=== PATIENT | male | born 1980 | race African-American/Black ===

== ENCOUNTER 2024-05-20 11:10 | Inpatient (IN) | payer MEDICAID, OTHER ==
[~2024-05-20] VITALS: Ht 182.9 cm; Wt 73.2 kg
--- NOTE | 2024-05-20 11:34 | DVH ---
CHEST RADIOGRAPH Indication: sob Technique: Single frontal view of the chest was obtained COMPARISON: None FINDINGS: Lines and Tubes: None Lungs: Left basilar subsegmental atelectasis. Pleura: No effusion. No pneumothorax. Cardiomediastinal contours: Unremarkable Bones: Unremarkable IMPRESSION: Left basilar subsegmental atelectasis.
[2024-05-20] MEDS: ALBUTEROL SULF 2.5 MG/0.5ML(0.5%) NEB SOLN NEB ONE (11:38)
[2024-05-20] MEDS: IPRATROPIUM BROM 0.5 MG/2.5ML INH SOL NEB ONE (11:38)
--- NOTE | 2024-05-20 11:49 | ED.PDOC ---
SOB-HPI HPI Comments 44 y.o male presents to the ED via EMS with a one day history of SOB associated with a productive cough and green phlegm sputum. Patient reports chest wall pain when exhaling and states he "cannot catch his breath". EMS reports normal SPO2 levels with hypotension at 80 systolic on scene, BG in the 350's, and a HR of 130-140 ST. EMS gave IV fluids with recent repeated blood pressure upon ED arrival reading 101 systolic but HR remains elevated. Patient denies any fever, chills, back pain, recent illness exposure, abdominal pain, nausea, vomiting. Patient also denies any medical history and is not on any medication at this time. No allergies reported. Patient is a tobacco smoker. 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 Modifying Factors: Nothing Associated Signs and Symptoms: Cough Quality: Sharp Radiation: No Radiation Location: Substernal If cough with SOB: Productive, Green Past Medical History PAST MEDICAL HISTORY: Denies Surgical History: Hernia Repair Family History Family History: Reviewed,noncontributory to illness Social History Smoker: Cigarettes Alcohol: Denies ETOH Use Drugs: Denies Drug Use Lives In: Home Constitutional: denies: chills, diaphoresis, fatigue, fever, malaise, sweats, weakness, others EENTM: denies: blurred vision, double vision, ear bleeding, ear discharge, ear drainage, ear pain, ear ringing, eye pain, eye redness, hearing loss, mouth pain, mouth swelling, nasal discharge, nose bleeding, nose congestion, nose pain, photophobia, tearing, throat pain, throat swelling, voice changes, others Respiratory: reports: cough, SOB at rest, shortness of breath, SOB with excertion; denies: hemoptysis, orthopnea, stridor, wheezing, others Cardiovascular: reports: chest pain; denies: dizzy spells, diaphoresis, Dyspnea on exertion, edema, irregular heart beat, left arm pain, lightheadedness, palpitations, PND, syncope, others Gastrointestinal: denies: abdomen distended, abdominal pain, blood streaked bowels, constipated, diarrhea, dysphagia, difficulty swallowing, hematemesis, melena, nausea, poor appetite, poor fluid intake, rectal bleeding, rectal pain, vomiting, others Genitourinary: denies: burning, dysuria, flank pain, frequency, hematuria, incontinence, penile discharge, penile sore, pain, testicle pain, testicle swelling, urgency, others Neurological: denies: dizziness, fainting, headache, left sided numbness, left sided weakness, numbness, paresthesia, pre-existing deficit, right sided numbness, right sided weakness, seizure, speech problems, tingling, tremors, weakness, others Musculoskeletal: denies: back pain, gout, joint pain, joint swelling, muscle pain, muscle stiffness, neck pain, others Integumetry: denies: bruises, change in color, change in hair/nails, dryness, laceration, lesions, lumps, rash, wounds, others Allergic/Immunocompromised: denies: Difficulty Healing, Frequent Infections, Hives, Itching, others Hematologic/Lymphatic: denies: anemia, blood clots, easy bleeding, easy bruising, swollen glands, others Endocrine: denies: excessive hunger, excessive sweating, excessive thirst, excessive urination, flushing, intolerance to cold, intolerance to heat, unexplained weight gain, unexplained weight loss, others Psychiatric: denies: anxiety, bipolar disorder, depression, hopeless, panic disorder, schizophrenia, sleepless, suicidal, others All Other Systems: Reviewed and Negative Physical Exam General Appearance: Mild Distress HEENT: Other (Bolused symmetric, no facial asymmetry) Neck: Full Range of Motion, Normal Inspection Respiratory: Decreased Breath Sounds, No Accessory Muscle Use, No Respiratory Distress Cardiovascular: No Edema, No JVD, Tachycardia Breast Exam: Deferred Gastrointestinal: Non Tender, Soft Genitalia: Deferred Pelvic: Deferred Rectal: Deferred Extremities: Normal inspection, Normal range of motion, Non-tender, No pedal edema Neurologic: Alert (Oriented x4), Other (Moves all extremities. No gross focal deficit.) Cerebellar Function: NOT DONE Reflexes: NOT DONE Skin: Dry, Normal Color, Warm Lymphatic: NOT DONE EKG EKG : Comments Sinus tach, rate 119, normal ID and QRS intervals, QTC 518, normal axis, normal QRS, nonspecific T changes. Was a procedure done? Was a procedure done?: No Differential Dx Differential Diagnosis: Asthma, Bronchitis, Cardiogenic Shock, CHF, COPD, Myocardial infarction, Pneumonia, Pulmonary Embolism, Respiratory Distress, URI, Other (Sepsis, electrolyte imbalance, DKA, among others) X-Ray, Labs, Meds, VS Vital Signs Date Time Temp Pulse Resp B/P (MAP) Pulse Ox O2 Delivery O2 Flow Rate FiO2 05/20/24 18:59 107 20 90/61 (71) 93 05/20/24 18:44 107 20 98 Room Air* 0 21 05/20/24 18:36 108 20 83/43 (56) 96 05/20/24 18:18 111 20 88/52 (64) 92 05/20/24 18:00 107 20 87/49 (62) 93 05/20/24 17:18 98.2 107 20 98/68 (78) 96 98.2 05/20/24 14:53 97.8 112 16 112/59 (76) 94 97.8 05/20/24 12:25 128 18 94 Room Air 05/20/24 12:25 98.7 128 18 103/52 (69) 94 98.7 05/20/24 11:38 20 93 Room Air* 0 21 05/20/24 11:20 98.2 133 18 105/72 (83) 96 98.2 05/20/24 11:13 98.2 133 18 105/72 (83) 96 05/20/24 11:13 119 Lab Test 05/20/24 17:25 05/20/24 15:16 05/20/24 14:57 05/20/24 13:15 Range/Units POC Glucose 133 H 70-106 mg/dl Lactic Acid Level 8.2 *H 10.5 *H 0.4-2.0 mmol/L Troponin I High Sensitivity 31 32 </=54 ng/L Beta-Hydroxybutyric Acid 0.124 < 0.4 mmol/L Blood Gas Specimen Type Arterial Blood Gas Sample Site Left radial Blood Gas Patient Temperature 37.0 Arterial Blood Date Drawn [id number] Arterial Blood pH 7.336 L 7.350-7.450 Arterial Blood Partial Pressure CO2 36.9 35.0-48.0 mmHg Arterial Blood Partial Pressure O2 69.8 L 83.0-108.0 mmHg Arterial Blood HCO3 19.3 L 21.0-28.0 mmol/L Arterial Blood Oxygen Saturation 91.9 L 94.0-98.0 % Arterial Blood Base Excess -5.9 L -2.0-3.0 mmol/L Arterial Blood Oxyhemoglobin 89.8 L 94.0-98.0 % Arterial Blood Carboxyhemoglobin 2.0 H 0.5-1.5 % Arterial Blood Methemoglobin 0.3 0.0-1.5 % Edilberto Test Yes Blood Gas Total Hemoglobin 14.00 13.5-17.5 g/dL Blood Gas Modality Room air FiO2 % 21.0 Test 05/20/24 12:45 05/20/24 11:42 Range/Units Influenza Type A Antigen Negative Negative Influenza Type B Antigen Negative Negative SARS-CoV-2 Antigen (Rapid) Negative NEGATIVE White Blood Count 4.9 4.4-10.8 10^3/uL Red Blood Count 3.72 L 4.5-5.90 10^6/uL Hemoglobin 13.7 13.5-17.5 g/dL Hematocrit 41.6 41.0-53.0 % Mean Corpuscular Volume 111.7 H 80.0-100.0 fL Mean Corpuscular Hemoglobin 36.7 H 28.0-32.0 pg Mean Corpuscular Hemoglobin Concent 32.9 32.0-36.0 g/dL Red Cell Distribution Width 15.8 H 11.8-14.3 % Platelet Count 180 140-450 10^3/uL Mean Platelet Volume 8.9 6.9-10.8 fL Neutrophils (%) (Auto) 37.0-80.0 % Lymphocytes (%) (Auto) 10.0-50.0 % Monocytes (%) (Auto) 0.0-12.0 % Basophils (%) (Auto) 0.0-2.0 % Neutrophils # (Auto) 1.6-8.6 10 ^3/uL Lymphocytes # (Auto) 0.4-5.4 10 ^3/uL Monocytes # (Auto) 0-1.3 10 ^3/uL Differential Total Cells Counted 100.0 100 Neutrophils % (Manual) 80 37.0-80.0 Band Neutrophils % (Manual) 16 Lymphocytes % (Manual) 2 L 10.0-50.0 Monocytes % (Manual) 2 0-12 Eosinophils % (Manual) 0 0-7 Basophils % (Manual) 0 0.0-2.0 Metamyelocytes % (manual) 0 Myelocytes % (Manual) 0 Promyelocytes % (Manual) 0 Blast Cells % (Manual) 0 Reactive Lymphocytes 0 Platelet Estimate Adequate Anisocytosis (manual) Slight Macrocytosis Marked Sodium Level 129 L 136-145 mmol/L Potassium Level 2.7 L 3.5-5.1 mmol/L Chloride Level 90 L 98-107 mmol/L Carbon Dioxide Level 19 L 20-31 mmol/L Anion Gap 20 H 5-15 Blood Urea Nitrogen 19 9-23 mg/dL Creatinine 2.26 H 0.700-1.30 mg/dL Glomerular Filtration Rate Calc 36 >90 mL/min BUN/Creatinine Ratio 8.4 L 10.0-20.0 Serum Glucose 305 H 74-106 mg/dL Calcium Level 8.7 8.7-10.4 mg/dL Troponin I High Sensitivity 29 </=54 ng/L B-Type Natriuretic Peptide 29.98 0-100 pg/mL Current Medications Medications (Trade) Dose Ordered Sig/Cristela Route Start Time Stop Time Status Last Admin Albuterol (Ventolin Medneb) 5 mg ONCE ONCE NEB 05/20/24 11:30 05/20/24 11:31 DC 05/20/24 11:38 Ipratropium [place] (Atrovent Medneb) 0.5 mg ONCE ONCE NEB 05/20/24 11:30 05/20/24 11:31 DC 05/20/24 11:38 Dexamethasone Sodium Phosphate (Decadron Injection) 10 mg ONCE ONCE IV 05/20/24 11:30 05/20/24 11:31 DC 05/20/24 12:42 Acetaminophen/ Hydrocodone Bitart ([place] 10/325MG Tab) 1 tab ONCE ONCE PO 05/20/24 11:30 05/20/24 11:31 DC 05/20/24 12:38 Sodium Chloride 1,000 ml @ 1,000 mls/hr Q1H ONCE IV 05/20/24 12:15 05/20/24 13:14 DC 05/20/24 12:54 Sodium Chloride 1,000 ml @ 1,000 mls/hr Q1H ONCE IV 05/20/24 14:45 05/20/24 15:44 DC 05/20/24 15:19 Piperacillin Sod/ Tazobactam Sod 100 ml @ 100 mls/hr ONCE ONCE IV 05/20/24 14:45 05/20/24 15:44 DC 05/20/24 15:18 Vancomycin HCl 250 ml @ 250 mls/hr ONCE ONCE IV 05/20/24 14:45 05/20/24 15:44 DC 05/20/24 18:23 Potassium Bicarbonate (Klor-Con/Ef) 50 meq ONCE ONCE PO 05/20/24 14:45 05/20/24 14:52 DC 05/20/24 16:33 Diagnostic Test (Pha) (Accu-Chek Comfort Curve T) 1 strip Q90MIN 05/20/24 15:00 05/20/24 17:41 DC 05/20/24 16:30 Sodium Chloride 1,000 ml @ 1,000 mls/hr Q1H ONCE IV 05/20/24 15:00 05/20/24 15:59 DC 05/20/24 16:38 [place] [id number] Ph: [phone] DIAGNOSTIC IMAGING Diagnostic Imaging Report : [id number] Signed PATIENT: EVY BURKS ACCT: [id number] UNIT: [id number] : 1980 LOC: ER ROOM / BED: / AGE / SEX: 44 / M ADM STATUS: REG ER SERVICE 111 ORDERING PHYSICIAN: JEYSON FRITZ MD PROCEDURE(s): CXRP - CHEST PORTABLE REASON: sob ORDER NUMBER(s): [id number], ACCESSION NUMBER(s): [id number] CHEST RADIOGRAPH Indication: sob Technique: Single frontal view of the chest was obtained COMPARISON: None FINDINGS: Lines and Tubes: None Lungs: Left basilar subsegmental atelectasis. Pleura: No effusion. No pneumothorax. Cardiomediastinal contours: Unremarkable Bones: Unremarkable IMPRESSION: Left basilar subsegmental atelectasis. ATED BY: MARITO WINTER MD DICTATED DATE/TIME: 05/20/24 113 SIGNED BY: MARITO WINTER MD SIGNED DATE/TIME: 05/20/24 113 CC: X-Ray, Labs, Meds, VS Comment 44-year-old male with no reported past medical history complaining of shortness a breath, productive cough and found to be hyperglycemic and hypotensive Vitals remarkable for heart rate 133 Exam remarkable for tachycardia and diminished breath sounds at both bases EKG sinus tach, nonspecific T changes Chest x-ray left basilar atelectasis CBC unremarkable, basic metabolic panel remarkable for sodium 129, potassium 2.7, chloride 90, CO2 19, creatinine 2.26, glucose 305, anion gap 20, creatinine 2.26 Lactate 10.5 BNP and troponin negative Beta hydroxybutyrate and ABG pending Patient treated with the following in the ED: 3 L 0.9 normal saline IV bolus, Zosyn 4.5 g IV, vancomycin 1 g IV, Decadron 10 mg IV, albuterol 5 mg/Atrovent 0.5 mg nebulized, potassium effervescent 50 mEq p.o., started on Levophed infusion due to persistent hypotension despite IV fluid resuscitation On re-evaluation, patient has a normal oxygen saturation, vitals are stable except for mild tachycardia. Plan is to admit the patient for IV hydration, electrolyte correction and treatment of new onset diabetes with DKA. Time of 1ST Reevaluation: 11:49 Reevaluation 1ST: Unchanged Patient Education/Counseling: Diagnosis, Treatment, Prognosis Family Education/Counseling: No Family Present Sepsis Sepsis Reasesment Focused Exam Sepsis focused exam: focus exam completed (1446. Good capillary refill, blood pressure improving.), time: (1445) Departure 1 Departure Time of Disposition: 14:45 Impression: Primary Impression: Sepsis Qualified Codes: A41.9 - Sepsis, unspecified organism Additional Impression: Electrolyte imbalance Disposition: 09 ADMITTED INPATIENT Admit to: Tele Condition: Guarded Critical Care Note Critical Care Time?: Yes (45 min-critical care time only) Critical care comment: Critical care time includes multiple bedside re-evaluations, review of lab and imaging studies, discussion with the case with the admitting provider. Patient was high risk for metabolic, respiratory and/or hemodynamic decompensation Stability Stability form required: No Heart Score Heart Score: Heart Score Response (Comments) Value History Slightly Suspicious 0 EKG Repolarization Disturb 1 Age 45-64 1 Risk Factors 1 or 2 risk factors 1 Troponin Normal limit 0 Total 3 I personally scribed for JEYSON FRITZ MD ([facility]) on 05/20/24 at 11:49. Electronically submitted by Sury Moore ([facility]). I personally scribed for JEYSON FRITZ MD ([facility]) on 05/20/24 at 12:43. Electronically submitted by Sury Moore ([facility]). JEYSON FRITZ MD May 20, 2024 11:49
[2024-05-20 12:11] LABS: Hemoglobin 13.7 g/dL (13.5-17.5); White Blood Cell 4.9 10^3/uL (4.4-10.8)
[2024-05-20 12:15] LABS: Hematocrit 41.6 % (41.0-53.0); Mean Corpuscular Hemoglobin 36.7 pg (28.0-32.0); Mean Corpuscular Hgb Conc. 32.9 g/dL (32.0-36.0); Mean Corpuscular Volume 111.7 fL (80.0-100.0); Platelet Count (auto) 180 10^3/uL (140-450); Red Blood Cells 3.72 10^6/uL (4.5-5.90); Red Cell Distribution Width 15.8 % (11.8-14.3)
[2024-05-20 12:31] LABS: Basophils % (manual) 0 (0.0-2.0); Blast Cells 0; Eosinophils % (manual) 0 (0-7); Metamyelocytes % 0; Myelocytes % 0; Promyelocytes % 0; Reactive Lymphocytes 0
[2024-05-20] MEDS: HYDROcodone-ACET 10/325MG TAB PO ONE (12:38)
[2024-05-20 12:39] LABS: Anion Gap 20 (5-15)
[2024-05-20] MEDS: DexAMETHasone SOD PHOS 10MG/1ML VIAL INJ IV ONE (12:42)
[2024-05-20 12:44] LABS: BUN/Creatinine Ratio 8.4 (10.0-20.0); Blood Urea Nitrogen 19 mg/dL (9-23)
[2024-05-20 12:45] LABS: Calcium 8.7 mg/dL (8.7-10.4); Carbon Dioxide 19 mmol/L (20-31); Chloride 90 mmol/L (98-107); Glucose 305 mg/dL (74-106); Potassium 2.7 mmol/L (3.5-5.1); Sodium 129 mmol/L (136-145)
[2024-05-20] MEDS: SODIUM CHLORIDE 0.9% 1,000 ML IV ONE ×3 (12:54→16:38)
[2024-05-20 12:58] LABS: Band Neutrophils % (manual) 16; Lymphocytes % (manual) 2 (10.0-50.0); Monocytes % (manual) 2 (0-12)
[2024-05-20 12:59] LABS: Anisocytosis Slight; Macrocytosis Marked; Platelet Estimate Adequate
[2024-05-20 14:20] LABS: Lactic Acid w/Reflex 10.5 mmol/L (0.4-2.0)
[2024-05-20 14:30] LABS: COVID19 ANTIGEN SOFIA FIA NEGATIVE (NEGATIVE); Rapid Influenza A Negative (Negative); Rapid Influenza B Negative (Negative)
[2024-05-20] MEDS ORDERED: INSULIN DRIP 100 UNIT/100ML 100 ML IV SCH (14:45)
[2024-05-20] MEDS ORDERED: DEXTROSE (50%) 50ML SYRG IV PRN ×2 (14:45→20:15)
[2024-05-20] MEDS ORDERED: INSULIN LANTUS (GLARGINE) 1 /0.01ml (100units/ml) SC ONE (14:45)
--- NOTE | 2024-05-20 14:55 | ECG ---
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
[2024-05-20] MEDS: ACCU-CHEK COMFORT CURVE STRIP VI SCH (15:00)
[2024-05-20 15:09] LABS: Base Excess -5.9 mmol/L (-2.0-3.0)
[2024-05-20] MEDS: PIPERACILLIN-TAZO 4.5GM 100 ML IV ONE (15:18)
[2024-05-20] MEDS: POTASSIUM EFFERVESENT TAB 25 MEQ PO ONE (16:33)
[2024-05-20] MEDS: VANCOMYCIN 1GM/250ML KIT 250 ML IV ONE (18:23)
[2024-05-20 18:44] VITALS: PULSE 107; RESP 20; O2SAT 98
[2024-05-20] MEDS ORDERED: DOCUSATE SOD 100 MG CAP PO PRN (19:15)
[2024-05-20] MEDS ORDERED: VANCOMYCIN PER PHARMACY 0 MG IV SCH (19:15)
[2024-05-20] MEDS ORDERED: ACETAMINOPHEN 325 MG TAB PO PRN (19:15)
[2024-05-20] MEDS ORDERED: ONDANSETRON HCL 4 MG/2 ML VIAL IV PRN (19:15)
[2024-05-20] MEDS: NOREPINEPHRINE 8 MG/250ML KIT 250 ML IV SCH (19:40)
[2024-05-20 19:45] VITALS: O2SAT 95
[2024-05-20 19:53] VITALS: PULSE 100; RESP 18; O2SAT 97
[2024-05-20 20:00] VITALS: BP 80/62; PULSE 112; RESP 24; TEMP 98.3; O2SAT 95
--- NOTE | 2024-05-20 20:09 | DVHHP2 ---
History of Present Illness Reason for Visit: Sepsis, unspecified organism History of Present Illness The patient is a 44-year-old male who denies past medical history presented to [facility] ED with complaint of shortness of breaths. Patient reports symptoms progressively get worse with productive cough with greenish phlegm sputum, generalized weakness, palpitations, hypotensive, getting worse that prompted this visit. Patient was seen and evaluated in the ED, laboratory data shows WBC 4.9, platelet 180, sodium 129, potassium 2.7, BUN 19, creatinine 2.26, GFR 36, glucose 305, anion gap 20, acetone 0.124, BNP 29.98, lactic acid 10.5 trending down to 8.2, troponin 32, blood pressure 83/53 trending up to 90/61, heart rate 133 trending down to 108, temperature 98.2 F, O2 saturation 97% on oxygen. Chest x-ray revealing left bibasilar subsegmental atelectasis. Patient was started on IV Levophed, please see medication orders section in the computer. On my assessment, patient denied chest pain, denies past medical history of diabetes mellitus, no headache, no dizziness, no blurry vision, no loss of consciousness, currently on oxygen, no abdominal pain, no diarrhea, no nausea, no vomiting, no fever, no chills. Patient was admitted for further evaluation and medical management. Past Medical History Denies past medical history Past Surgical History Hernia Repair Family History Reviewed, noncontributory to the management of this case. Past Social History The patient lives at home, smokes cigarettes, denies alcohol or illicit drugs abuse. Review of Systems Constitutional: Yes: Weakness; No: Fever, Chills, Sweats, Malaise, Other Eyes: No: Pain, Vision change, Conjunctivae inflammation, Eyelid inflammation, Other, Redness ENT: No: Ear pain, Ear discharge, Nose pain, Nose discharge, Nose congestion, Mouth pain, Mouth swelling, Throat pain, Throat swelling, Other Respiratory: Cough (With phlegm), Shortness of breath; No: Dry, SOB with excertion, Wheezing, Hemoptysis, Pleuritic Pain, Sputum, Wheezing, Other Cardiovascular: Palpitations; No: Chest Pain, Orthopnea, Paroxysmal Noc. Dyspnea, Edema, Lt Headedness, Other Gastrointestinal: No: Nausea, Vomiting, Abdominal Pain, Diarrhea, Constipation, Melena, Hematochezia, Other Genitourinary: No Dysuria, No Frequency, No Incontinence, No Hematuria, No Retention, No Other Musculoskeletal: No: other, neck pain, shoulder pain, arm pain, back pain, hand pain, leg pain, foot pain Skin: No: Rash, Lesions, Jaundice, Bruising, Other Neurological: No: Weakness, Numbness, Incoordination, Change in speech, Confusion, Seizures, Other Allergies: Coded Allergies: NO KNOWN ALLERGIES (Unverified , 05/20/24) Medications Current Medications Medications Dose Ordered Sig/Cristela Route Start Time Stop Time Status Last Admin Dose Admin Norepinephrine Bitartrate 250 ml @ 3.75 mls/hr Q24H IV 05/20/24 19:15 05/20/24 19:40 3.75 MLS/HR Vancomycin HCl 0 ml @ 0 mls/hr UD IV 05/20/24 19:15 Albuterol 2.5 mg Q4HPRN PRN NEB 05/20/24 19:15 Ipratropium [place]ing 0.5 mg Q4HPRN PRN NEB 05/20/24 19:15 Methylprednisolone Sodium Succinate 40 mg BID IV 05/20/24 22:00 Famotidine 20 mg EOD IV 05/20/24 22:00 Sodium Chloride 1,000 ml @ 125 mls/hr Q8H IV 05/20/24 19:15 Acetaminophen/ Hydrocodone Bitart 1 tab Q4HP PRN PO 05/20/24 19:15 Ondansetron HCl 4 mg Q4HP PRN IV 05/20/24 19:15 Docusate Sodium 100 mg BIDPRN PRN PO 05/20/24 19:15 Acetaminophen 650 mg Q6HP PRN PO 05/20/24 19:15 Piperacillin Sod/ Tazobactam Sod 100 ml @ 25 mls/hr Q8HR IV 05/20/24 22:00 Exam Vital Signs Vital Signs Date Time Temp Pulse Resp B/P (MAP) Pulse Ox O2 Delivery O2 Flow Rate FiO2 05/20/24 20:00 98.3 112 24 80/62 95 4.0 98.3 05/20/24 19:53 Nasal Cannula* 36 General Appearance: Alert, Oriented X3, Cooperative, No acute distress HEENT: Atraumatic, PERRLA, EOMI, Mucous membr. moist/pink Respiratory: Normal air movement Cardiovascular: Regular rate, Normal S1, Normal S2, No murmurs Abdominal: Normal bowel sounds, Soft, No tenderness, No hepatospenomegaly, No masses Extremities: No clubbing, No cyanosis, No edema, Normal pulses, No tenderness/swelling Skin: No rashes, No breakdown, No significant lesion Neuro: Normal speech, Normal tone, Sensation intact, Cranial nerves 3-12 NL, Reflexes 2+, Other (Generalized weakness) Psych/Mental Status: Mental status NL, Mood NL Labs/Xrays Labs Test 05/20/24 17:25 05/20/24 15:16 05/20/24 14:57 05/20/24 12:45 Range/Units POC Glucose 133 H 70-106 mg/dl Lactic Acid Level 8.2 *H 0.4-2.0 mmol/L Troponin I High Sensitivity 31 </=54 ng/L Beta-Hydroxybutyric Acid 0.124 < 0.4 mmol/L Blood Gas Specimen Type Arterial Blood Gas Sample Site Left radial Blood Gas Patient Temperature 37.0 Arterial Blood Date Drawn [id number] Arterial Blood pH 7.336 L 7.350-7.450 Arterial Blood Partial Pressure CO2 36.9 35.0-48.0 mmHg Arterial Blood Partial Pressure O2 69.8 L 83.0-108.0 mmHg Arterial Blood HCO3 19.3 L 21.0-28.0 mmol/L Arterial Blood Oxygen Saturation 91.9 L 94.0-98.0 % Arterial Blood Base Excess -5.9 L -2.0-3.0 mmol/L Arterial Blood Oxyhemoglobin 89.8 L 94.0-98.0 % Arterial Blood Carboxyhemoglobin 2.0 H 0.5-1.5 % Arterial Blood Methemoglobin 0.3 0.0-1.5 % Edilberto Test Yes Blood Gas Total Hemoglobin 14.00 13.5-17.5 g/dL Blood Gas Modality Room air FiO2 % 21.0 Influenza Type A Antigen Negative Negative Influenza Type B Antigen Negative Negative SARS-CoV-2 Antigen (Rapid) Negative NEGATIVE Test 05/20/24 11:42 Range/Units White Blood Count 4.9 4.4-10.8 10^3/uL Red Blood Count 3.72 L 4.5-5.90 10^6/uL Hemoglobin 13.7 13.5-17.5 g/dL Hematocrit 41.6 41.0-53.0 % Mean Corpuscular Volume 111.7 H 80.0-100.0 fL Mean Corpuscular Hemoglobin 36.7 H 28.0-32.0 pg Mean Corpuscular Hemoglobin Concent 32.9 32.0-36.0 g/dL Red Cell Distribution Width 15.8 H 11.8-14.3 % Platelet Count 180 140-450 10^3/uL Mean Platelet Volume 8.9 6.9-10.8 fL Neutrophils (%) (Auto) 37.0-80.0 % Lymphocytes (%) (Auto) 10.0-50.0 % Monocytes (%) (Auto) 0.0-12.0 % Basophils (%) (Auto) 0.0-2.0 % Neutrophils # (Auto) 1.6-8.6 10 ^3/uL Lymphocytes # (Auto) 0.4-5.4 10 ^3/uL Monocytes # (Auto) 0-1.3 10 ^3/uL Differential Total Cells Counted 100.0 100 Neutrophils % (Manual) 80 37.0-80.0 Band Neutrophils % (Manual) 16 Lymphocytes % (Manual) 2 L 10.0-50.0 Monocytes % (Manual) 2 0-12 Eosinophils % (Manual) 0 0-7 Basophils % (Manual) 0 0.0-2.0 Metamyelocytes % (manual) 0 Myelocytes % (Manual) 0 Promyelocytes % (Manual) 0 Blast Cells % (Manual) 0 Reactive Lymphocytes 0 Platelet Estimate Adequate Anisocytosis (manual) Slight Macrocytosis Marked Sodium Level 129 L 136-145 mmol/L Potassium Level 2.7 L 3.5-5.1 mmol/L Chloride Level 90 L 98-107 mmol/L Carbon Dioxide Level 19 L 20-31 mmol/L Anion Gap 20 H 5-15 Blood Urea Nitrogen 19 9-23 mg/dL Creatinine 2.26 H 0.700-1.30 mg/dL Glomerular Filtration Rate Calc 36 >90 mL/min BUN/Creatinine Ratio 8.4 L 10.0-20.0 Serum Glucose 305 H 74-106 mg/dL Calcium Level 8.7 8.7-10.4 mg/dL B-Type Natriuretic Peptide 29.98 0-100 pg/mL PATIENT: EVY BURKS ACCT: [id number] UNIT: [id number] : 1980 LOC: ER ROOM / BED: / AGE / SEX: 44 / M ADM STATUS: REG ER SERVICE 1115 ORDERING PHYSICIAN: JEYSON FRITZ MD PROCEDURE(s): CXRP - CHEST PORTABLE REASON: sob ORDER NUMBER(s): [id number], ACCESSION NUMBER(s): [id number] CHEST RADIOGRAPH Indication: sob Technique: Single frontal view of the chest was obtained COMPARISON: None FINDINGS: Lines and Tubes: None Lungs: Left basilar subsegmental atelectasis. Pleura: No effusion. No pneumothorax. Cardiomediastinal contours: Unremarkable Bones: Unremarkable IMPRESSION: Left basilar subsegmental atelectasis. Assessment/Plan Assessment/Plan Sepsis, unspecified organism Electrolyte imbalance Acute renal injury New onset type 2 diabetes mellitus Diabetes mellitus with lactic acidosis without coma Plan 1. Admit to intensive care unit 2. Breathing treatment 3. Pain control management 4. IV antibiotic management 5. Management of fluids and electrolytes 6. Consultation for hospitalist 7. Diagnostic test chest x-ray 8. DVT prophylaxis-on SCDs 9. Repeat labs CBC, CMP in a.m. 10. Home medication reviewed and reconciled 11. Continue with current medical management 12. Treatment plan discussed with patient and RN. Patient verbalized understanding. Plan discussed with: Patient, Other (RN) My Orders Orders - BRANDY SMITH DNP Procedure Category Date Status Time Consistent DIET 05/21/24 Transmitted Carb(Ccho)Diabetes Breakfast Vancomycin Per PHA 05/20/24 In Process Pharmacy 19:15 Albuterol Medneb PHA 05/20/24 In Process (Ventolin Medneb) 19:15 Ipratropium Medneb PHA 05/20/24 In Process (Atrovent Medneb) 19:15 Methylprednisolone PHA 05/20/24 In Process Sod Succ (Solu Medrol 22:00 Famotidine Injection PHA 05/20/24 In Process (Pepcid Injection) 22:00 Sodium Chloride 0.9% PHA 05/20/24 In Process 19:15 Allergies RODDY 05/20/24 In Process 19:07 Code Status CODE 05/20/24 Transmitted 19:07 Oxygen Per Hour RT 05/20/24 Transmitted 19:07 Hydrocodone-Acet PHA 05/20/24 In Process 5/325mg Tab (Girard 19:15 Ondansetron Hcl PHA 05/20/24 In Process (Zofran) 19:15 Docusate Sodium PHA 05/20/24 In Process Capsule (Colace 19:15 Complete Blood Count LAB 05/21/24 Verified 04:00 Comprehensive LAB 05/21/24 Verified Metabolic Panel 04:00 Condition: Critical RODDY 05/20/24 In Process 19:07 Acetaminophen Tablet PHA 05/20/24 In Process (Tylenol Tablet) 19:15 Bedrest With Bathroom RODDY 05/20/24 In Process Privileg 19:07 Sequential RODDY 05/20/24 In Process Compression Device Piperacillin-Tazob PHA 05/20/24 In Process 3.375gm (Zosyn 3.375g 22:00 Vancomycin,Random LAB 05/21/24 Verified 04:00 Glucose Blood PHA 05/21/24 Verified (Accu-Chek Comfort 00:00 Agressive Insulin Ss PHA 05/21/24 Verified 00:00 Dextrose 50% Syringe PHA 05/20/24 Verified 20:15 Admit ADMIT 05/20/24 Verified 20:05 Nitroglycerin PHA 05/20/24 Verified Sublingual (Ntrostat 20:15 Morphine Sulfate PHA 05/20/24 Verified Injection 20:15 Notify Md Of Changes RODDY 05/20/24 Verified From Base 20:05 Displayer For [facility] 05/20/24 Verified 24 Hours 20:05 Emergency Dysrhythmia RODDY 05/20/24 Verified Protocol 20:05 Rhythm Strips Once RODDY 05/20/24 Verified Every Shift 20:05 Oxygen By Nasal RT 05/20/24 Verified Cannula 20:05 Problem List: (1) Sepsis, unspecified organism (2) New onset type 2 diabetes mellitus (3) Electrolyte imbalance (4) Acute renal injury (5) Diabetes mellitus with lactic acidosis without coma Date of Service: May 20, 2024 Billing Provider: BRANDY SMITH DNP Common Visit Codes: [id number] INP/OBS CARE (HIGH) BRANDY SMITH DNP May 20, 2024 20:09
[2024-05-20] MEDS ORDERED: NITROGLYCERIN 0.4 MG SL TAB SL PRN (20:15)
[2024-05-20] MEDS: SODIUM CHLORIDE 0.9% 1,000 ML IV SCH (20:25)
[2024-05-20 21:09] LABS: Urine Bacteria FEW /hpf (None Seen); Urine Blood 3+ /uL (Negative); Urine Budding Yeast MODERATE /hpf (None Seen); Urine Clarity Turbid (Clear); Urine Color Light-Orange (Yellow); Urine Mucus FEW (None Seen); Urine Protein, UAD 1+ (Negative); Urine Specific Gravity 1.012 (1.001-1.035); Urine Squamous Epithelial Cell FEW /hpf (<5); Urine Urobilinogen 4 mg/dL (Negative); Urine WBC 55 /HPF (0-3); Urine pH 5.5 (5.0-9.0)
[2024-05-20] MEDS: methylPREDNISolone SOD SUCC 40 MG/ML VL IV SCH (21:56)
[2024-05-20] MEDS: MORPHINE SULFATE INJ 2 MG/ml SYRG IV PRN (21:57)
[2024-05-20] MEDS: PIPERACILLIN-TAZOB 3.375GM 100 ML IV SCH (23:00)
[2024-05-20] MEDS: FAMOTIDINE (10MG/ML) 2ML VL IV SCH (23:00)
[2024-05-21] VITALS (44 sets, daily range): BP systolic 91–123; BP diastolic 50–86; PULSE 82–117; RESP 12–30; TEMP 97.8–98.6; O2SAT 86–99
[2024-05-21] MEDS: InsuLIN REG 1unit/0.01ml Soln (100units/ml) SC SCH
[2024-05-21] MEDS: ACCU-CHEK COMFORT CURVE STRIP VI SCH (00:05)
[2024-05-21 06:31] LABS: Hemoglobin 12.9 g/dL (13.5-17.5); Platelet Count (auto) 112 10^3/uL (140-450)
[2024-05-21 06:32] LABS: Albumin 3.5 g/dL (3.2-4.8); Anion Gap 16 (5-15); BUN/Creatinine Ratio 16.4 (10.0-20.0); Chloride 101 mmol/L (98-107); Potassium 3.7 mmol/L (3.5-5.1); Total Protein 6.1 g/dL (5.7-8.2)
[2024-05-21 06:35] LABS: Hematocrit 39.2 % (41.0-53.0); Mean Corpuscular Hemoglobin 37.2 pg (28.0-32.0); Mean Corpuscular Volume 112.5 fL (80.0-100.0); Red Blood Cells 3.48 10^6/uL (4.5-5.90); Red Cell Distribution Width 16.4 % (11.8-14.3); White Blood Cell 24.2 10^3/uL (4.4-10.8)
[2024-05-21 07:03] LABS: Basophils % (manual) 0 (0.0-2.0); Blast Cells 0; Eosinophils % (manual) 0 (0-7); Metamyelocytes % 0; Myelocytes % 0; Promyelocytes % 0; Reactive Lymphocytes 0
[2024-05-21 07:08] LABS: Alanine Aminotransferase 186 U/L (7-40); Alkaline Phosphatase 119 U/L (46-116); Aspartate Aminotransferase 255 U/L (13-40); Bilirubin, Total 2.3 mg/dL (0.2-1.0); Blood Urea Nitrogen 24 mg/dL (9-23); Carbon Dioxide 18 mmol/L (20-31); Glucose 115 mg/dL (74-106); Sodium 135 mmol/L (136-145)
[2024-05-21] MEDS: IPRATROPIUM BROM 0.5 MG/2.5ML INH SOL NEB PRN (07:09)
[2024-05-21] MEDS: ALBUTEROL SULF 2.5 MG/0.5ML(0.5%) NEB SOLN NEB PRN (07:09)
[2024-05-21] MEDS ORDERED: cefTRIAXone 1GM/50ML D5W 50 ML IV SCH (09:00)
[2024-05-21 09:11] LABS: Band Neutrophils % (manual) 13; Lymphocytes % (manual) 5 (10.0-50.0); Monocytes % (manual) 5 (0-12); Platelet Estimate Adequate
[2024-05-21 09:34] LABS: Magnesium 1.2 mg/dL (1.6-2.6)
[2024-05-21] MEDS ORDERED: INSULIN LANTUS (GLARGINE) 1 /0.01ml (100units/ml) SC SCH (10:00)
[2024-05-21] MEDS: HYDROcodone-ACET 5/325MG TAB PO PRN (11:17)
[2024-05-21] MEDS: MAGNESIUM SULFATE 1GM/100ML 100 ML IV SCH ×2 (11:21→14:00)
[2024-05-21] MEDS: VANCOMYCIN 1.25GM/250ML 250 ML IV ONE (11:21)
--- NOTE | 2024-05-21 12:30 | DVH ---
Date: 05/21/2024 11:09 AM Examination: XY ABDOMEN 2 VIEW History: DISTENDED ABDOMEN, PAIN ABDOMEN Comparison: None TECHNIQUE: Frontal views of the abdomen was obtained. FINDINGS: Bowel gas pattern is unremarkable. The lung bases are unremarkable. No acute osseous abnormality identified. IMPRESSION: Nonobstructive bowel gas pattern.
--- NOTE | 2024-05-21 13:43 | DVH ---
INDICATION: ABDOMINAL PAIN, DISTENTION , N/V TECHNIQUE: Multiple real-time sonographic images of the abdomen were obtained. COMPARISON: None FINDINGS: The liver is homogenous in echogenicity. The liver measures 21cm. No intrahepatic biliary ductal dilatation is noted. The gallbladder wall measures 1.5 cm and is unremarkable. Gallstones are noted. The common duct me asures 0.7 cm and is unremarkable. No pericholecystic fluid is noted. The right kidney measures 12cm. No hydronephrosis. The pancreas is not well visualized due to obscuration from bowel gas. The visualized portions of the IVC and aorta are grossly unremarkable. IMPRESSION: Hepatic steatosis/hepatomegaly. Cholelithiasis. Cholecystitis not excluded. Small right pleural effusion.
[2024-05-21] MEDS: NOREPINEPHRINE 8 MG/250ML KIT 250 ML IV SCH (13:45)
[2024-05-21 14:04] LABS: Albumin 3.7 g/dL (3.2-4.8); Alkaline Phosphatase 99 U/L (46-116); Anion Gap 15 (5-15); BUN/Creatinine Ratio 16.7 (10.0-20.0); Carbon Dioxide 21 mmol/L (20-31); Chloride 99 mmol/L (98-107)
[2024-05-21 14:05] LABS: Total Protein 6.6 g/dL (5.7-8.2)
[2024-05-21 14:09] LABS: Alanine Aminotransferase 217 U/L (7-40); Aspartate Aminotransferase 285 U/L (13-40); Bilirubin, Total 2.1 mg/dL (0.2-1.0); Blood Urea Nitrogen 23 mg/dL (9-23); Calcium 8.4 mg/dL (8.7-10.4); Glucose 113 mg/dL (74-106); Sodium 135 mmol/L (136-145)
[2024-05-21 15:24] LABS: Lactic Acid w/Reflex 5.5 mmol/L (0.4-2.0)
--- NOTE | 2024-05-21 15:26 | DVHINCON2 ---
Date Seen: May 21, 2024 Referring Physician ALEXANDRE Grewal Reason for Consultation Hypotension History of Present Illness This is a 44-year-old male patient who presents to emergency room with chief complaint of worsening shortness of breath. He also reports a productive cough and sputum production. Emergency medical services were called and the patient was found to be hypotensive. He was brought to the emergency room for further evaluation. Cardiology has now been consulted for hypotension. Initial twelve lead electrocardiogram reveals sinus tachycardia. Initial troponin level of 29ng/L. It was noted, that the patient came in with a lactic acid level of 10.5. Significant past medical history includes tobacco and marijuana use. He denies all other history. Past Medical History Past medical history reviewed. No other significant than mentioned above. Past Surgical History Hernia repair Family History Family history reviewed. Social History Patient has a 10 pack-year history, smokes approximately half a pack per day Patient admits to marijuana use, denies other illicit drugs Patient denies any alcohol use Allergies: Coded Allergies: NO KNOWN ALLERGIES (Unverified , 05/20/24) Home Meds Denies taking any prescribed medications Current Medications Current Medications Medications (Trade) Dose Ordered Sig/Cristela Route PRN Reason Start Time Stop Time Status Last Admin Insulin Glargine (Lantus) 15 units DAILY SC 05/21/24 10:00 05/20/24 17:41 DC Norepinephrine Bitartrate 250 ml @ 3.75 mls/hr Q24H IV 05/20/24 19:15 05/21/24 10:55 DC 05/20/24 19:40 Vancomycin HCl 0 ml @ 0 mls/hr UD IV 05/20/24 19:15 05/21/24 13:16 DC Albuterol (Ventolin Medneb) 2.5 mg Q4HPRN PRN NEB SHORTNESS OF BREATH 05/20/24 19:15 05/21/24 07:09 Ipratropium Antimony (Atrovent Medneb) 0.5 mg Q4HPRN PRN NEB SHORTNESS OF BREATH 05/20/24 19:15 05/21/24 07:09 Ceftriaxone Sodium 50 ml @ 100 mls/hr DAILY@09 IV 05/21/24 09:00 05/20/24 19:20 DC Methylprednisolone Sodium Succinate (Solu Medrol) 40 mg BID IV 05/20/24 22:00 05/21/24 10:55 DC 05/20/24 21:56 Famotidine (Pepcid Injection) 20 mg EOD IV 05/20/24 22:00 05/20/24 23:00 Sodium Chloride 1,000 ml @ 125 mls/hr Q8H IV 05/20/24 19:15 05/21/24 11:16 Acetaminophen/ Hydrocodone Bitart ([place] Pool 5/325MG Tab) 1 tab Q4HP PRN PO MODERATE PAIN (4-6 PAIN SCALE) 05/20/24 19:15 05/21/24 11:17 Ondansetron HCl (Zofran) 4 mg Q4HP PRN IV NAUSEA / VOMITING 05/20/24 19:15 Docusate Sodium (Colace Capsule) 100 mg BIDPRN PRN PO FOR CONSTIPATION 05/20/24 19:15 Acetaminophen (Tylenol Tablet) 650 mg Q6HP PRN PO PAIN SCALE 1-3 OR TEMP>100.4 05/20/24 19:15 Piperacillin Sod/ Tazobactam Sod 100 ml @ 25 mls/hr Q8HR IV 05/20/24 22:00 05/21/24 14:36 Diagnostic Test (Pha) (Accu-Chek Comfort Curve T) 1 strip IQ4HR 05/21/24 00:00 05/21/24 13:01 Insulin Human Regular (InsuLIN R) IQ4HR SC 05/21/24 00:00 Dextrose 50 ml UD PRN IV Blood Sugar LESS THAN 60 05/20/24 20:15 Nitroglycerin (Ntrostat Sublingual) 0.4 mg Q5MINP PRN SL FOR CHEST PAIN 05/20/24 20:15 Morphine Sulfate 2 mg Q30M PRN IV FOR CHEST PAIN 05/20/24 20:15 05/20/24 21:57 Magnesium Sulfate/ Dextrose 100 ml @ 100 mls/hr Q1HR IV 05/21/24 11:00 05/21/24 12:59 DC 05/21/24 13:02 Magnesium Sulfate/ Dextrose 100 ml @ 100 mls/hr Q1HR IV 05/21/24 13:30 05/21/24 14:59 DC 05/21/24 14:17 Cefepime HCl 50 ml @ 12.5 mls/hr Q8HR IV 05/21/24 14:00 UNV Norepinephrine Bitartrate 250 ml @ 3.75 mls/hr Q24H IV 05/21/24 13:45 Review of Systems Constitutional: No symptom reported Ears, Nose, & Throat: No symptom reported Eyes: No symptom reported Neurological: No symptoms reported Pulmonary/Respiratory: Shortness of breath, cough Cardiovascular: No symptom reported Gastrointestinal: No symptom reported Genitourinary: No symptom reported Musculoskeletal: No symptom reported Skin: No symptom reported Psychiatric: No symptom reported Endocrine: No symptom reported Hematologic/Lymphatic: No symptom reported Vital Signs Vital Signs Date Time Temp Pulse Resp B/P (MAP) Pulse Ox O2 Delivery O2 Flow Rate FiO2 05/21/24 12:00 104 05/21/24 08:00 24 95 Nasal Cannula* 3 32 05/21/24 07:00 112/69 05/20/24 20:00 98.3 98.3 Physical Exam General Appearance: Cooperative. Well-developed. Well-nourished. No acute distress. Pulmonary/Respiratory: Clear, bilateral breaths sounds. Cardiovascular/Chest: Regular rate and rhythm. Peripheral Pulses: 2+ Radial (R). 2+ Radial (L). 2+ Pedal (R). 2+ Pedal (L) Abdominal Exam: Normal bowel sounds. Ankle Exam: Negative ankle edema Lower extremities: Negative lower extremity edema Neuro/Mental Status: A/OX4, coherent. Thoughts/Psych: Normal thought pattern. Appropriate mood and affect. Good judgment and insight. Appearance: No acute distress. Skin Exam: Normal inspection. Normal color. Warm and dry. Labs/Diagnostic Data Labs Test 05/21/24 13:49 05/21/24 12:58 05/21/24 11:18 05/21/24 05:58 Range/Units POC Glucose 128 H 70-106 mg/dl Sodium Level 135 L 136-145 mmol/L Potassium Level 4.0 3.5-5.1 mmol/L Chloride Level 99 98-107 mmol/L Carbon Dioxide Level 21 20-31 mmol/L Anion Gap 15 5-15 Blood Urea Nitrogen 23 9-23 mg/dL Creatinine 1.38 H 0.700-1.30 mg/dL Glomerular Filtration Rate Calc 64 >90 mL/min BUN/Creatinine Ratio 16.7 10.0-20.0 Serum Glucose 113 H 74-106 mg/dL Calcium Level 8.4 L 8.7-10.4 mg/dL Total Bilirubin 2.1 H 0.2-1.0 mg/dL Aspartate Amino Transferase (AST) 285 H 13-40 U/L Alanine Aminotransferase (ALT) 217 H 7-40 U/L Alkaline Phosphatase 99 46-116 U/L Total Protein 6.6 5.7-8.2 g/dL Albumin 3.7 3.2-4.8 g/dL White Blood Count 24.2 #H 4.4-10.8 10^3/uL Red Blood Count 3.48 L 4.5-5.90 10^6/uL Hemoglobin 12.9 L 13.5-17.5 g/dL Hematocrit 39.2 L 41.0-53.0 % Mean Corpuscular Volume 112.5 H 80.0-100.0 fL Mean Corpuscular Hemoglobin 37.2 H 28.0-32.0 pg Mean Corpuscular Hemoglobin Concent 33.0 32.0-36.0 g/dL Red Cell Distribution Width 16.4 H 11.8-14.3 % Platelet Count 112 L 140-450 10^3/uL Mean Platelet Volume 8.9 6.9-10.8 fL Neutrophils (%) (Auto) 37.0-80.0 % Lymphocytes (%) (Auto) 10.0-50.0 % Monocytes (%) (Auto) 0.0-12.0 % Basophils (%) (Auto) 0.0-2.0 % Neutrophils # (Auto) 1.6-8.6 10 ^3/uL Lymphocytes # (Auto) 0.4-5.4 10 ^3/uL Monocytes # (Auto) 0-1.3 10 ^3/uL Differential Total Cells Counted 100.0 100 Neutrophils % (Manual) 77 37.0-80.0 Band Neutrophils % (Manual) 13 Lymphocytes % (Manual) 5 L 10.0-50.0 Monocytes % (Manual) 5 0-12 Eosinophils % (Manual) 0 0-7 Basophils % (Manual) 0 0.0-2.0 Metamyelocytes % (manual) 0 Myelocytes % (Manual) 0 Promyelocytes % (Manual) 0 Blast Cells % (Manual) 0 Reactive Lymphocytes 0 Platelet Estimate Adequate Hemoglobin A1c 4.8 <5.7 % A1C Magnesium Level 1.2 L 1.6-2.6 mg/dL Lipase 20 12-53 U/L Thyroid Stimulating Hormone (TSH) 2.78 0.55-4.78 uIU/mL Random Vancomycin Level 7.5 5-10 ug/mL Test 05/20/24 15:16 05/20/24 14:57 05/20/24 12:45 05/20/24 12:44 Range/Units Troponin I High Sensitivity 31 </=54 ng/L Beta-Hydroxybutyric Acid 0.124 < 0.4 mmol/L Blood Gas Specimen Type Arterial Blood Gas Sample Site Left radial Blood Gas Patient Temperature 37.0 Arterial Blood Date Drawn [id number] Arterial Blood pH 7.336 L 7.350-7.450 Arterial Blood Partial Pressure CO2 36.9 35.0-48.0 mmHg Arterial Blood Partial Pressure O2 69.8 L 83.0-108.0 mmHg Arterial Blood HCO3 19.3 L 21.0-28.0 mmol/L Arterial Blood Oxygen Saturation 91.9 L 94.0-98.0 % Arterial Blood Base Excess -5.9 L -2.0-3.0 mmol/L Arterial Blood Oxyhemoglobin 89.8 L 94.0-98.0 % Arterial Blood Carboxyhemoglobin 2.0 H 0.5-1.5 % Arterial Blood Methemoglobin 0.3 0.0-1.5 % Edilberto Test Yes Blood Gas Total Hemoglobin 14.00 13.5-17.5 g/dL Blood Gas Modality Room air FiO2 % 21.0 Influenza Type A Antigen Negative Negative Influenza Type B Antigen Negative Negative SARS-CoV-2 Antigen (Rapid) Negative NEGATIVE Urine Color Light-orange Yellow Urine Clarity Turbid H Clear Urine pH 5.5 5.0-9.0 Urine Specific [place] 1.012 1.001-1.035 Urine Protein 1+ H Negative Urine Ketones Trace Negative Urine Blood 3+ H Negative /uL Urine Nitrite Negative Negative Urine Bilirubin 1+ Negative Urine Urobilinogen 4 H Negative mg/dL Urine Leukocyte Esterase 2+ Negative /uL Urine RBC 1 0 - 3 /hpf Urine Microscopic WBC 55 H 0-3 /HPF Urine Squamous Epithelial Cells Few <5 /hpf Urine Bacteria Few H None Seen /hpf Urine Mucus Few None Seen Urine Yeast (Budding) Moderate None Seen /hpf Urine Glucose Normal Normal mg/dL Test 05/20/24 11:42 Range/Units Anisocytosis (manual) Slight Macrocytosis Marked B-Type Natriuretic Peptide 29.98 0-100 pg/mL Microbiology Date/Time Source Procedure Growth Status 05/20/24 13:15 Blood Blood Culture - Preliminary NO GROWTH AFTER 24 HOURS OF INCUBATION. Resulted Assessment Hypotension likely in the setting of septic shock Rule out structural heart disease Pneumonia Urinary tract infection Hypomagnesemia Transaminitis Acute kidney injury Tobacco use Marijuana use Plan/Recommendation We will continue with the following plan/recommendations (Dr. Mitchell): Case discussed with . A transthoracic echocardiogram was ordered to evaluate cardiac function. Hypotension likely in the setting of septic shock. We will recommend to continue vasopressors for hemodynamic support. Continue antibiotics per primary care team. In the setting of an unremarkable echocardiogram, there is no further inpatient cardiac workup indicated at this time. Thank you for allowing us to care for this patient. Please call with any questions or concerns. Critical care time spent: 40 minutes This medical document was created using an electronic medical record system with voice recognition software and computerized dictation system. Although this document has been carefully reviewed, there might still be some phonetic and typographical errors. Occasional wrong-word or ``sound-alike substitutions may have occurred due to the inherent limitations of voice recognition software. These areas are purely typographical due to imperfections of the software programs and do not reflect any compromise in the patient's medical care. Please read the chart carefully and recognize, using context, where these substitutions have occurred. Plan discussed with: Patient NYHA Physical activity limitations: NA Date of Service: May 21, 2024 Billing Provider: ATA MONTELONGO Cardiology Common Codes: [id number] INP/OBS CARE (High) Cardiology Consultation Codes: [id number] CONSULT <45MIN ATA MONTELONGO May 21, 2024 15:26
[2024-05-21] MEDS ORDERED: VANCOMYCIN PER PHARMACY 0 MG IV SCH (15:30)
--- NOTE | 2024-05-21 15:48 | DVH ---
EXAM: US BILAT LOWER DVT Clinical History: SOB, TACHY, Comparison: None Technique: Duplex Doppler evaluation of the deep venous systems of both lower extremities from the common femora l veins to the popliteal veins including color Doppler and spectral/pulsed waveform analysis was perf ormed. Findings: No visible intraluminal venous thrombus. No evidence of incompressibility or abnormal color or spectr al Doppler flow visualized in the deep bilateral lower extremity veins. Proximal greater saphenous ve ins are grossly unremarkable. Left Farmer's cyst measuring 6.1 x 1.0 x 3.5 cm. Impression: 1. No sonographic evidence of deep venous thrombosis throughout the bilateral lower extremities from the popliteal veins to the common femoral veins.
--- NOTE | 2024-05-21 16:00 | DVHPNRES ---
Progress Note Date Seen: May 21, 2024 Resident Creating Document: BHARTI HARPER RESIDENT Medical Necessity Reason Pt with a Central, PICC or Fol: No Subjective Review of Systems Patient is 44 years old male with no significant past medical history was brought in by EMS due to shortness of breath. Patient reported he started having shortness of breath on Monday with a productive cough. Patient reports he could not catch his breath. Patient also reported having cough with greenish sputum. On further discussion patient reported having left-sided chest pain, central, 08/17, nonradiating, no aggravating or relieving factor. Patient also complained of feeling generalized weakness, palpitation. On further inquiry patient also reported having right upper abdominal pain started on Monday, 06/17, vague in nature, associated nausea and vomiting for 6 time, watery, yellowish greenish vomitus, no blood. Patient denied any fever, acute joint pain or swelling, diarrhea, dysarthria, change in vision. On arrival patient's BP was low with 5/53, pulse ranging from 130-140, blood sugar 350s. Patient's lab work up was significant for MCV 111.7, RDW 15.8, hyponatremia with the sodium 129, hypokalemia with potassium 2.7, increased anion gap 20, elevated serum creatinine 2.26, lactic acidosis with lactic acid 10.5, transaminitis with total bilirubin 2.3, AST 255, ALT 186, hypomagnesemia 1.2, TSH 2.78, BNP 11.4, troponin I 29> 32> 31, lipase 20.. urinalysis revealed-leukocyte esterase 2+, RBC 1+, WBC 55, bacteria few, yeast moderate. ABG revealed pH 7.336, partial pressure of carbon dioxide 36.9, partial pressure of oxygen 69.8, bicarbonate 19.3. Patient tested negative for COVID-19 and influenza type A and B. CXR revealed-Left basilar subsegmental atelectasis. X- ray abdomen revealed-Nonobstructive bowel gas pattern. Ultrasound revealed- Hepatic steatosis/hepatomegaly. Cholelithiasis. Cholecystitis not excluded. Small right pleural effusion. Bilateral lower extremity Doppler was negative for DVT. PMH-no significant past medical history PSH- hernia repair-umbilical Allergy- NKDA Personal History/ Social History- smoker, alcoholic, use marijuana., lives at home as per patient Patient was seen today at the bedside. Patient Cardiovascular- denies palpitation Respiratory denied wheezing Gastrointestinal- complaint of abdominal pain Musculoskeletal-denies acute joint swelling or tenderness or redness Neurological- denies acute dysarthria, dysphagia, change in vision Psychiatry- denies depression or SI or HI Skin- denies acute rash or purpura Patient was seen today for clinical evaluation. Less than chart reviewed. Patient still on Levophed likely due to septic shock. Patient is still tachycardic with tachypnea. On NC O2 3 liter/minute. Patient got hypoxic in room air, SpO2 dropped down to 85-86. Ordered Doppler study of the lower extremity rule out DVT. X-ray abdomen revealed-Nonobstructive bowel gas pattern. Ultrasound revealed- Hepatic steatosis/hepatomegaly. Cholelithiasis. Cholecystitis not excluded. Small right pleural effusion. Patient's lactic acid is trending down from 10.5> 8.2> 5.5. Serum creatinine trending down from 2.26>> 1.46 1.38. WBC elevated today to 24.2 likely due to methylprednisolone patient had yesterday. Cardiology consultation was done, recommendation reviewed and appreciated.Pending UDS and serum alcohol level. Objective vital signs Vital Sign Date Time Temp Pulse Resp B/P (MAP) Pulse Ox O2 Delivery O2 Flow Rate FiO2 05/21/24 12:00 104 05/21/24 08:00 24 95 Nasal Cannula* 3 32 05/21/24 07:00 112/69 05/20/24 20:00 98.3 98.3 Total Intake and Output 05/20/24 05/20/24 05/21/24 15:00 23:00 07:00 Intake Total 1375 ml 1225 ml Balance 1375 ml 1225 ml medications Current Medications Medications Dose Ordered Sig/Cristela Route Start Time Stop Time Status Last Admin Dose Admin Albuterol 2.5 mg Q4HPRN PRN NEB 05/20/24 19:15 05/21/24 07:09 2.5 MG Ipratropium [place] 0.5 mg Q4HPRN PRN NEB 05/20/24 19:15 05/21/24 07:09 0.5 MG Famotidine 20 mg EOD IV 05/20/24 22:00 05/20/24 23:00 20 MG Sodium Chloride 1,000 ml @ 125 mls/hr Q8H IV 05/20/24 19:15 05/21/24 11:16 125 MLS/HR Acetaminophen/ Hydrocodone Bitart 1 tab Q4HP PRN PO 05/20/24 19:15 05/21/24 11:17 1 TAB Ondansetron HCl 4 mg Q4HP PRN IV 05/20/24 19:15 Docusate Sodium 100 mg BIDPRN PRN PO 05/20/24 19:15 Acetaminophen 650 mg Q6HP PRN PO 05/20/24 19:15 Diagnostic Test (Pha) 1 strip IQ4HR 05/21/24 00:00 05/21/24 13:01 1 STRIP Insulin Human Regular IQ4HR SC 05/21/24 00:00 Dextrose 50 ml UD PRN IV 05/20/24 20:15 Nitroglycerin 0.4 mg Q5MINP PRN SL 05/20/24 20:15 Morphine Sulfate 2 mg Q30M PRN IV 05/20/24 20:15 05/20/24 21:57 2 MG Cefepime HCl 50 ml @ 12.5 mls/hr Q8HR IV 05/21/24 22:00 Norepinephrine Bitartrate 250 ml @ 3.75 mls/hr Q24H IV 05/21/24 13:45 Vancomycin HCl 0 ml @ 0 mls/hr UD IV 05/21/24 15:30 Examination General examination- patient awake, alert, tired looking HEENT- PEERLA, no acute nasal discharge Cardiovascular- S1-S2 audible, rate and rhythm regular, no murmur Respiratory- CTAB, no wheeze or rhonchi Gastrointestinal-right upper abdominal tenderness, bowel+ sounds present Musculoskeletal-no acute joint swelling or tenderness or redness# Lower extremity- no leg edema Neurological- cranial nerves intact, no acute dysarthria or dysphagia Psychiatry- denies depression or SI or HI Skin- no acute rash or purpura laboratory and microbiology Laboratory Tests 05/21/24 11:18 05/21/24 05:58 Test 05/21/24 11:18 Range/Units Serum Glucose 113 H 74-106 mg/dL Microbiology Date/Time Source Procedure Growth Status 05/20/24 13:15 Blood Blood Culture - Preliminary NO GROWTH AFTER 24 HOURS OF INCUBATION. Resulted Problem List/Assessment/Plan Problem List/Assessment/Plan # Septic shock likely due to UTI versus pneumonia # Acute hypoxic respiratory failure likely due to pneumonia/PE # Metabolic encephalopathy # Metabolic acidosis likely lactic acidosis/due to alcoholism # Shock liver # Hyponatremia # Hypokalemia # Hypomagnesemia # KIMBERLY likely due to septic shock # Suspected UTI # Alcohol dependence # Suspected pulmonary embolism # Substance abuse # Amoking # Macrocytosis likely due to alcoholism Plan -continue cefepime 1 g IV q.8h -continue vancomycin as per pharmacy protocol -continue normal saline 125 mL/hour -continue Levophed as per titration to maintain blood pressure 100 over 60 mm of mercury -continue insulin as per sliding scale --maintain intake output chart -continue other medication as prescribed -patient was counseled about substance abuse and smoking and alcoholism Goals of care/advance care planning; FULL CODE; discussed with the patient >15 minutes PUD prophylaxis: Famotidine DVT prophylaxis: Lovenox Plan discussed with Dr. Nino , nursing staff, patient Total time spent on patient evaluation, chart review, assessment and plan, discussion discussion >51 minutes Plan discussed with: Patient (RN), Other My Orders My Orders Orders - BHARTI HARPER Procedure Category Date Status Time Urine Bacterial LESVIA 05/21/24 In Process Culture 07:29 Respiratory Culture LESVIA 05/21/24 Logged W/ Gs 07:33 Abdomen 2 View XY 05/21/24 Resulted 10:33 Abdomen Limited US 05/21/24 Resulted 10:33 Blood Alcohol LAB 05/21/24 In Process 10:36 Cefepime 1gm/ 50ml PHA 05/21/24 In Process (Maxipime 1gm/50ml) 22:00 Bilat Lower Dvt US 05/21/24 Taken 13:04 Basic Metabolic Panel LAB 05/21/24 In Process 13:16 Hepatic Panel LAB 05/21/24 In Process 13:16 Vancomycin Per PHA 05/21/24 In Process Pharmacy 15:30 Mrsa Screen LESVIA 05/21/24 Logged 15:32 Dietary Evaluation Review Recommendations by RD: Dietary education by RD Comments: Provided verbal and written diet education Expected Outcomes/Goals: 1. Adherence to prescribed diet 2. Maintain excellent glycemic control Date of Service: May 21, 2024 Billing Provider: JEROME VARGAS MD Common Visit Codes: [id number] INP/OBS CARE(HIGH) BHARTI HARPER May 21, 2024 16:00 JEROME VARGAS MD May 26, 2024 23:56
[2024-05-21] MEDS: CEFEPIME 1GM/ 50ML 50 ML IV ONE (16:07)
[2024-05-21] MEDS: ENOXAPARIN SOD 30 MG/0.3 ML SYRINGE SC ONE (17:01)
[2024-05-21] MEDS: FAMOTIDINE (10MG/ML) 2ML VL IV SCH (22:00)
[2024-05-21] MEDS: CEFEPIME 1GM/ 50ML 50 ML IV SCH (22:00)
[2024-05-22] VITALS (7 sets, daily range): BP systolic 120; BP diastolic 80; PULSE 41–106; RESP 12–18; TEMP 97.3; O2SAT 91–98
[2024-05-22] MEDS: VANCOMYCIN 1.25GM/250ML 250 ML IV SCH (01:10)
[2024-05-22 06:12] LABS: Hemoglobin 11.1 g/dL (13.5-17.5); Mean Corpuscular Hemoglobin 36.9 pg (28.0-32.0); Red Blood Cells 3.01 10^6/uL (4.5-5.90)
[2024-05-22 06:15] LABS: Hematocrit 33.2 % (41.0-53.0); Mean Corpuscular Hgb Conc. 33.5 g/dL (32.0-36.0); Mean Corpuscular Volume 110.2 fL (80.0-100.0); Platelet Count (auto) 63 10^3/uL (140-450); Red Cell Distribution Width 15.8 % (11.8-14.3); White Blood Cell 13.9 10^3/uL (4.4-10.8)
[2024-05-22 06:29] LABS: Albumin 3.3 g/dL (3.2-4.8); Alkaline Phosphatase 86 U/L (46-116); Anion Gap 9 (5-15); BUN/Creatinine Ratio 22.5 (10.0-20.0); Basophils % (manual) 0 (0.0-2.0); Blast Cells 0; Carbon Dioxide 24 mmol/L (20-31); Chloride 99 mmol/L (98-107); Eosinophils % (manual) 0 (0-7); Glucose 97 mg/dL (74-106); Magnesium 1.9 mg/dL (1.6-2.6); Metamyelocytes % 0; Myelocytes % 0; Promyelocytes % 0; Reactive Lymphocytes 0
[2024-05-22 06:48] LABS: Alanine Aminotransferase 178 U/L (7-40); Aspartate Aminotransferase 163 U/L (13-40); Bilirubin, Total 1.6 mg/dL (0.2-1.0); Blood Urea Nitrogen 23 mg/dL (9-23); Calcium 8.5 mg/dL (8.7-10.4); Sodium 132 mmol/L (136-145)
[2024-05-22 08:20] LABS: Band Neutrophils % (manual) 13; Lymphocytes % (manual) 11 (10.0-50.0); Monocytes % (manual) 5 (0-12)
[2024-05-22 08:22] LABS: Platelet Estimate Decreased
[2024-05-22 08:23] LABS: Macrocytosis Moderate
[2024-05-22] MEDS: ENOXAPARIN SOD 30 MG/0.3 ML SYRINGE SC SCH (10:04)
--- NOTE | 2024-05-22 11:47 | DVH ---
Procedure: NM NM HIDA SCAN Exam Date: 05/22/2024 08:48 AM Clinical History: abdomoinal pain, cholelithiasis Comparison Study: 05/21/2024 Nuclear Medicine Hepatobiliary Scan. Technique: Following the intravenous administration of 3.9 mCi of technetium 99m labeled Choletec multiple plana r abdominal planar images were obtained in anterior projection in 5 minute intervals for45 minutes . Right lateral images were obtained at 45 minutes after injection. Findings: The liver appears grossly normal in size. There is no abnormal persistence of the cardiac or blood po ol activity. There is prompt visualization of the gallbladder and excretion of activity into the smal l bowel. Impression: Unremarkable hepatobiliary study without evidence of acute cholecystitis.
[2024-05-22] MEDS: HYDROCORTISONE SOD SUCC 100 MG/2ML INJ VIAL IV ONE (11:51)
[2024-05-22 13:30] LABS: Cannabinoid Screen, Urine Pos (NEGATIVE); Opiate Scree,Urine Pos (NEGATIVE)
[2024-05-22 13:41] LABS: Bilirubin, Direct 1.1 mg/dL (<0.3)
[2024-05-22 13:41] LABS: Amphetamine Screen, Urine Neg (NEGATIVE); Barbiturate Scree,Urine Neg (NEGATIVE); Benzodiazephine Screen, Urine Neg (NEGATIVE); Cocaine Screen, Urine Neg (NEGATIVE); Phencyclidine Screen, Urine Neg (NEGATIVE)
[2024-05-22] MEDS: HYDROCORTISONE SOD SUCC 100 MG/2ML INJ VIAL IV SCH (21:08)
[2024-05-23] VITALS (13 sets, daily range): BP systolic 102–140; BP diastolic 61–89; PULSE 78–96; RESP 12–20; TEMP 97.4–98.4; O2SAT 90–100
--- NOTE | 2024-05-23 07:26 | DVHPNRES ---
Progress Note Date Seen: May 22, 2024 Resident Creating Document: BHARTI HARPER RESIDENT Medical Necessity Reason Pt with a Central, PICC or Fol: No Subjective Review of Systems Patient is 44 years old male with no significant past medical history was brought in by EMS due to shortness of breath. Patient reported he started having shortness of breath on Monday with a productive cough. Patient reports he could not catch his breath. Patient also reported having cough with greenish sputum. On further discussion patient reported having left-sided chest pain, central, 08/17, nonradiating, no aggravating or relieving factor. Patient also complained of feeling generalized weakness, palpitation. On further inquiry patient also reported having right upper abdominal pain started on Monday, 06/17, vague in nature, associated nausea and vomiting for 6 time, watery, yellowish greenish vomitus, no blood. Patient denied any fever, acute joint pain or swelling, diarrhea, dysarthria, change in vision. On arrival patient's BP was low with 5/53, pulse ranging from 130-140, blood sugar 350s. Patient's lab work up was significant for MCV 111.7, RDW 15.8, hyponatremia with the sodium 129, hypokalemia with potassium 2.7, increased anion gap 20, elevated serum creatinine 2.26, lactic acidosis with lactic acid 10.5, transaminitis with total bilirubin 2.3, AST 255, ALT 186, hypomagnesemia 1.2, TSH 2.78, BNP 11.4, troponin I 29> 32> 31, lipase 20.. urinalysis revealed-leukocyte esterase 2+, RBC 1+, WBC 55, bacteria few, yeast moderate. ABG revealed pH 7.336, partial pressure of carbon dioxide 36.9, partial pressure of oxygen 69.8, bicarbonate 19.3. Patient tested negative for COVID-19 and influenza type A and B. CXR revealed-Left basilar subsegmental atelectasis. X- ray abdomen revealed-Nonobstructive bowel gas pattern. Ultrasound revealed- Hepatic steatosis/hepatomegaly. Cholelithiasis. Cholecystitis not excluded. Small right pleural effusion. Bilateral lower extremity Doppler was negative for DVT. PMH-no significant past medical history PSH- hernia repair-umbilical Allergy- NKDA Personal History/ Social History- smoker, alcoholic, use marijuana., lives at home as per patient Patient was seen today at the bedside. Patient Cardiovascular- denies palpitation Respiratory denied wheezing Gastrointestinal- complaint of abdominal pain Musculoskeletal-denies acute joint swelling or tenderness or redness Neurological- denies acute dysarthria, dysphagia, change in vision Psychiatry- denies depression or SI or HI Skin- denies acute rash or purpura Patient was seen today for clinical evaluation. Labs and chart reviewed. Patient reported feeling much better today. Denied acute short of breath. Reported pain of the abdomen has improved a lot. Patient still with leukocytosis WBC 13.9. HIDA scan negative for acute cholecystitis. Uterine culture preliminary report revealed a [id number] colony-forming units per mL Gram-negative rods, blood culture preliminary report revealed Gram-negative rods. Patient was taken off Levophed and maintain blood pressure over 90/ 60. Objective vital signs Vital Sign Date Time Temp Pulse Resp B/P (MAP) Pulse Ox O2 Delivery O2 Flow Rate FiO2 05/23/24 05:00 97.4 92 12 130/78 (95) 100 97.4 05/22/24 20:00 Room Air* 0 21 Total Intake and Output 05/22/24 05/22/24 05/23/24 15:00 23:00 07:00 Intake Total 550.0 ml 675.0 ml 1500 ml Output Total 800 ml Balance 550.0 ml 675.0 ml 700 ml medications Current Medications Medications Dose Ordered Sig/Cristela Route Start Time Stop Time Status Last Admin Dose Admin Albuterol 2.5 mg Q4HPRN PRN NEB 05/20/24 19:15 05/22/24 07:18 2.5 MG Ipratropium [place] 0.5 mg Q4HPRN PRN NEB 05/20/24 19:15 05/22/24 07:18 0.5 MG Acetaminophen/ Hydrocodone Bitart 1 tab Q4HP PRN PO 05/20/24 19:15 05/21/24 11:17 1 TAB Ondansetron HCl 4 mg Q4HP PRN IV 05/20/24 19:15 Docusate Sodium 100 mg BIDPRN PRN PO 05/20/24 19:15 Acetaminophen 650 mg Q6HP PRN PO 05/20/24 19:15 Nitroglycerin 0.4 mg Q5MINP PRN SL 05/20/24 20:15 Morphine Sulfate 2 mg Q30M PRN IV 05/20/24 20:15 05/20/24 21:57 2 MG Cefepime HCl 50 ml @ 12.5 mls/hr Q8HR IV 05/21/24 22:00 05/23/24 06:32 12.5 MLS/HR Vancomycin HCl 0 ml @ 0 mls/hr UD IV 05/21/24 15:30 Vancomycin HCl 250 ml @ 200 mls/hr Q14H IV 05/22/24 01:00 05/23/24 04:42 200 MLS/HR Enoxaparin Sodium 30 mg DAILY SC 05/22/24 10:00 05/22/24 10:04 30 MG Famotidine 20 mg Q12HR IV 05/21/24 22:00 05/22/24 21:08 20 MG Hydrocortisone Sodium Succinate 100 mg Q12HR IV 05/22/24 22:00 05/22/24 21:08 100 MG Examination General examination- patient awake, alert, tired looking HEENT- PEERLA, no acute nasal discharge Cardiovascular- S1-S2 audible, rate and rhythm regular, no murmur Respiratory- CTAB, no wheeze or rhonchi Gastrointestinal-right upper abdominal tenderness, bowel+ sounds present Musculoskeletal-no acute joint swelling or tenderness or redness# Lower extremity- no leg edema Neurological- cranial nerves intact, no acute dysarthria or dysphagia Psychiatry- denies depression or SI or HI Skin- no acute rash or purpura laboratory and microbiology Laboratory Tests 05/23/24 03:46 05/22/24 05:18 Test 05/22/24 05:18 Range/Units Serum Glucose 97 74-106 mg/dL Microbiology Date/Time Source Procedure Growth Status 05/20/24 13:15 Blood Blood Culture - Preliminary NO GROWTH AFTER 48 HOURS OF INCUBATION. Resulted 05/20/24 12:44 Voided Urine Urine Culture - Preliminary Resulted Problem List/Assessment/Plan Problem List/Assessment/Plan # Septic shock likely due to UTI versus pneumonia # Acute hypoxic respiratory failure likely due to pneumonia/PE # Metabolic encephalopathy # Metabolic acidosis likely lactic acidosis/due to alcoholism # Shock liver # Hyponatremia # Hypokalemia # Hypomagnesemia # KIMBERLY likely due to septic shock # Suspected UTI # Alcohol dependence # Suspected pulmonary embolism # Substance abuse # Amoking # Macrocytosis likely due to alcoholism . HIDA scan negative for acute cholecystitis. -Urine culture preliminary report revealed a 11191 colony-forming units per mL Gram-negative rods, blood culture preliminary report revealed Gram-negative rods. Plan -continue cefepime 1 g IV q.8h -continue vancomycin as per pharmacy protocol -continue normal saline 125 mL/hour Discontinue Levophed --maintain intake output chart -continue other medication as prescribed -patient was counseled about substance abuse and smoking and alcoholism Goals of care/advance care planning; FULL CODE; discussed with the patient >15 minutes PUD prophylaxis: Famotidine DVT prophylaxis: Lovenox Plan discussed with Dr. Nino , nursing staff, patient Total time spent on patient evaluation, chart review, assessment and plan, discussion discussion >51 minutes Plan discussed with: Patient, Other (RN) Dietary Evaluation Review Recommendations by RD: Dietary education by RD Comments: Provided verbal and written diet education Expected Outcomes/Goals: 1. Adherence to prescribed diet 2. Maintain excellent glycemic control Date of Service: May 22, 2024 Billing Provider: JEROME VARGAS MD Common Visit Codes: [id number] INP/OBS CARE(HIGH) BHARTI HARPER RESIDENT May 23, 2024 07:26 JEROME VARGAS MD May 27, 2024 00:06
[2024-05-23 07:58] LABS: Basophils # (auto) 0 10 ^3/uL (0-0.2); Eosinophils # (auto) 0 10 ^3/uL (0-0.8); Hemoglobin 12.1 g/dL (13.5-17.5); Nucleated Red Blood Cells % 0.1 %
[2024-05-23 07:59] LABS: Basophils % (auto) 0.1 % (0.0-2.0); Eosinophils % (auto) 0.2 % (0.0-7.0); Hematocrit 35.5 % (41.0-53.0); Lymphocytes # (auto) 0.5 10 ^3/uL (0.4-5.4); Lymphocytes % (auto) 4.6 % (10.0-50.0); Mean Corpuscular Hemoglobin 37.7 pg (28.0-32.0); Mean Corpuscular Volume 110.8 fL (80.0-100.0); Monocytes # (auto) 0.2 10 ^3/uL (0-1.3); Neutrophils # (auto) 10.3 10 ^3/uL (1.6-8.6); Neutrophils % (auto) 93.1 % (37.0-80.0); Platelet Count (auto) 52 10^3/uL (140-450); White Blood Cell 11.1 10^3/uL (4.4-10.8)
[2024-05-23 08:02] LABS: Albumin 3.6 g/dL (3.2-4.8); Anion Gap 11 (5-15); Calcium 8.9 mg/dL (8.7-10.4); Carbon Dioxide 24 mmol/L (20-31); Chloride 100 mmol/L (98-107); Magnesium 1.9 mg/dL (1.6-2.6); Potassium 4.1 mmol/L (3.5-5.1)
[2024-05-23 08:03] LABS: Alanine Aminotransferase 172 U/L (7-40); Alkaline Phosphatase 139 U/L (46-116); Aspartate Aminotransferase 132 U/L (13-40); Blood Urea Nitrogen 26 mg/dL (9-23); Glucose 123 mg/dL (74-106); Sodium 135 mmol/L (136-145)
[2024-05-23 08:04] LABS: Total Protein 6.2 g/dL (5.7-8.2)
[2024-05-23 08:10] LABS: Bilirubin, Total 1.2 mg/dL (0.2-1.0)
--- NOTE | 2024-05-23 17:16 | DVHPNRES ---
Progress Note Date Seen: May 23, 2024 Resident Creating Document: BHARTI HARPER RESIDENT Medical Necessity Reason Pt with a Central, PICC or Fol: No Subjective Review of Systems Patient is 44 years old male with no significant past medical history was brought in by EMS due to shortness of breath. Patient reported he started having shortness of breath on Monday with a productive cough. Patient reports he could not catch his breath. Patient also reported having cough with greenish sputum. On further discussion patient reported having left-sided chest pain, central, 08/17, nonradiating, no aggravating or relieving factor. Patient also complained of feeling generalized weakness, palpitation. On further inquiry patient also reported having right upper abdominal pain started on Monday, 06/17, vague in nature, associated nausea and vomiting for 6 time, watery, yellowish greenish vomitus, no blood. Patient denied any fever, acute joint pain or swelling, diarrhea, dysarthria, change in vision. On arrival patient's BP was low with 5/53, pulse ranging from 130-140, blood sugar 350s. Patient's lab work up was significant for MCV 111.7, RDW 15.8, hyponatremia with the sodium 129, hypokalemia with potassium 2.7, increased anion gap 20, elevated serum creatinine 2.26, lactic acidosis with lactic acid 10.5, transaminitis with total bilirubin 2.3, AST 255, ALT 186, hypomagnesemia 1.2, TSH 2.78, BNP 11.4, troponin I 29> 32> 31, lipase 20.. urinalysis revealed-leukocyte esterase 2+, RBC 1+, WBC 55, bacteria few, yeast moderate. ABG revealed pH 7.336, partial pressure of carbon dioxide 36.9, partial pressure of oxygen 69.8, bicarbonate 19.3. Patient tested negative for COVID-19 and influenza type A and B. CXR revealed-Left basilar subsegmental atelectasis. X- ray abdomen revealed-Nonobstructive bowel gas pattern. Ultrasound revealed- Hepatic steatosis/hepatomegaly. Cholelithiasis. Cholecystitis not excluded. Small right pleural effusion. Bilateral lower extremity Doppler was negative for DVT. PMH-no significant past medical history PSH- hernia repair-umbilical Allergy- NKDA Personal History/ Social History- smoker, alcoholic, use marijuana., lives at home as per patient Patient was seen today at the bedside. Patient Cardiovascular- denies palpitation Respiratory denied wheezing Gastrointestinal- complaint of abdominal pain Musculoskeletal-denies acute joint swelling or tenderness or redness Neurological- denies acute dysarthria, dysphagia, change in vision Psychiatry- denies depression or SI or HI Skin- denies acute rash or purpura Patient was seen today for clinical evaluation. Labs and chart reviewed. Patient off Levophed. Maintain good blood pressure without inotropic support. Denied acute chest pain or shortness of breath or abdominal pain. Breathing well in room air. Blood culture uterine culture revealed E coli. Discontinued Cefepime and vancomycin. Ordered ceftriaxone 1 g IV daily. Ordered revealed blood culture. Objective vital signs Vital Sign Date Time Temp Pulse Resp B/P (MAP) Pulse Ox O2 Delivery O2 Flow Rate FiO2 05/23/24 17:00 97.9 89 20 131/88 (102) 95 97.9 05/23/24 10:11 Room Air* 0 21 Total Intake and Output 05/22/24 05/22/24 05/23/24 15:00 23:00 07:00 Intake Total 550.0 ml 675.0 ml 1500 ml Output Total 800 ml Balance 550.0 ml 675.0 ml 700 ml medications Current Medications Medications Dose Ordered Sig/Cristela Route Start Time Stop Time Status Last Admin Dose Admin Albuterol 2.5 mg Q4HPRN PRN NEB 05/20/24 19:15 05/23/24 10:11 2.5 MG Ipratropium [place] 0.5 mg Q4HPRN PRN NEB 05/20/24 19:15 05/23/24 10:11 0.5 MG Acetaminophen/ Hydrocodone Bitart 1 tab Q4HP PRN PO 05/20/24 19:15 05/23/24 14:08 1 TAB Ondansetron HCl 4 mg Q4HP PRN IV 05/20/24 19:15 Docusate Sodium 100 mg BIDPRN PRN PO 05/20/24 19:15 Acetaminophen 650 mg Q6HP PRN PO 05/20/24 19:15 Nitroglycerin 0.4 mg Q5MINP PRN SL 05/20/24 20:15 Morphine Sulfate 2 mg Q30M PRN IV 05/20/24 20:15 05/20/24 21:57 2 MG Cefepime HCl 50 ml @ 12.5 mls/hr Q8HR IV 05/21/24 22:00 05/23/24 13:52 12.5 MLS/HR Enoxaparin Sodium 30 mg DAILY SC 05/22/24 10:00 05/22/24 10:04 30 MG Famotidine 20 mg Q12HR IV 05/21/24 22:00 05/23/24 10:06 20 MG Hydrocortisone Sodium Succinate 100 mg Q12HR IV 05/22/24 22:00 05/23/24 10:06 100 MG Examination General examination- patient awake, alert, tired looking HEENT- PEERLA, no acute nasal discharge Cardiovascular- S1-S2 audible, rate and rhythm regular, no murmur Respiratory- CTAB, no wheeze or rhonchi Gastrointestinal-abdomen nontender, bowel+ sounds present Musculoskeletal-no acute joint swelling or tenderness or redness# Lower extremity- no leg edema Neurological- cranial nerves intact, no acute dysarthria or dysphagia Psychiatry- denies depression or SI or HI Skin- no acute rash or purpura laboratory and microbiology Laboratory Tests 05/23/24 03:46 Test 05/23/24 03:46 Range/Units Serum Glucose 123 H 74-106 mg/dL Microbiology Date/Time Source Procedure Growth Status 05/22/24 16:30 Nose MRSA Screen - Final Complete 05/20/24 13:15 Blood Blood Culture - Preliminary NO GROWTH AFTER 72 HOURS OF INCUBATION. Resulted 05/20/24 12:44 Voided Urine Urine Culture - Final Escherichia coli Complete Problem List/Assessment/Plan Problem List/Assessment/Plan # Urosepsis with end-organ damage due to E coli # acute complicated cystitis with end organ damage due to E coli # acute bacteremia with E coli # Septic shock likely due urosepsis # Metabolic encephalopathy # Metabolic acidosis likely lactic acidosis/due to alcoholism # Shock liver # Hyponatremia # Hypokalemia # Hypomagnesemia # KIMBERLY likely due to septic shock # Suspected UTI # Alcohol dependence # Suspected pulmonary embolism # Substance abuse # Smoking # Macrocytosis likely due to alcoholism . HIDA scan negative for acute cholecystitis. Blood culture revealed E coli. Urine culture revealed E coli -patient maintaining good blood pressure without ionotropic support -patient breathing well in room air Plan Discontinued Cefepime and vancomycin. Ordered ceftriaxone 1 g IV daily. Ordered revealed blood culture. Continue hydrocortisone 100 mg IV q.12 hours. --maintain intake output chart -continue other medication as prescribed -patient was counseled about substance abuse and smoking and alcoholism Pending repeat blood culture report Goals of care/advance care planning; FULL CODE; discussed with the patient >15 minutes PUD prophylaxis: Famotidine DVT prophylaxis: Lovenox Plan discussed with Dr. Nino , nursing staff, patient Total time spent on patient evaluation, chart review, assessment and plan, discussion discussion >51 minutes Plan discussed with: Patient (RN), Other My Orders My Orders Orders - BHARTI HARPER Procedure Category Date Status Time Blood Culture LESVIA 05/23/24 In Process 10:44 Ceftriaxone 1gm/50ml PHA 05/24/24 Logged D5w (Rocephin) 09:00 Ceftriaxone 1gm/50ml PHA 05/23/24 Logged D5w (Rocephin) 17:15 Dietary Evaluation Review Recommendations by RD: Dietary education by RD Comments: Provided verbal and written diet education Expected Outcomes/Goals: 1. Adherence to prescribed diet 2. Maintain excellent glycemic control Date of Service: May 23, 2024 Billing Provider: JEROME VARGAS MD Common Visit Codes: [id number] INP/OBS CARE(HIGH) BHARTI HARPER May 23, 2024 17:16 JEROME VARGAS MD May 27, 2024 00:10
[2024-05-23] MEDS: cefTRIAXone 1GM/50ML D5W 50 ML IV ONE (17:34)
[2024-05-24] VITALS (9 sets, daily range): BP systolic 115–127; BP diastolic 71–84; PULSE 60–88; RESP 14–20; TEMP 94.6–98.1; O2SAT 93–100
[2024-05-24 07:36] LABS: Albumin 3.6 g/dL (3.2-4.8); Anion Gap 7 (5-15); BUN/Creatinine Ratio 21.3 (10.0-20.0); Bilirubin, Total 0.8 mg/dL (0.2-1.0); Blood Urea Nitrogen 17 mg/dL (9-23); Calcium 9.1 mg/dL (8.7-10.4); Carbon Dioxide 28 mmol/L (20-31); Chloride 101 mmol/L (98-107); Magnesium 1.8 mg/dL (1.6-2.6); Potassium 3.7 mmol/L (3.5-5.1); Total Protein 6.2 g/dL (5.7-8.2)
[2024-05-24 07:38] LABS: Alanine Aminotransferase 119 U/L (7-40); Alkaline Phosphatase 119 U/L (46-116); Aspartate Aminotransferase 58 U/L (13-40); Glucose 119 mg/dL (74-106); Sodium 136 mmol/L (136-145)
[2024-05-24 08:07] LABS: Hematocrit 35.7 % (41.0-53.0); Hemoglobin 11.9 g/dL (13.5-17.5); Mean Corpuscular Hemoglobin 36.2 pg (28.0-32.0); Mean Corpuscular Hgb Conc. 33.3 g/dL (32.0-36.0); Mean Corpuscular Volume 108.5 fL (80.0-100.0); Platelet Count (auto) 53 10^3/uL (140-450); Red Blood Cells 3.29 10^6/uL (4.5-5.90); Red Cell Distribution Width 15.6 % (11.8-14.3); White Blood Cell 6.2 10^3/uL (4.4-10.8)
[2024-05-24 08:11] LABS: Basophils % (manual) 0 (0.0-2.0); Blast Cells 0; Eosinophils % (manual) 0 (0-7); Metamyelocytes % 0; Myelocytes % 0; Promyelocytes % 0; Reactive Lymphocytes 0
[2024-05-24 09:11] LABS: Band Neutrophils % (manual) 3; Lymphocytes % (manual) 15 (10.0-50.0); Monocytes % (manual) 2 (0-12)
[2024-05-24 09:12] LABS: Platelet Estimate Decreased
[2024-05-24] MEDS: cefTRIAXone 1GM/50ML D5W 50 ML IV SCH (10:32)
[2024-05-24 11:24] LABS: INR 1.05 (0.9-1.15); Partial Thromboplastin Time 27.2 SEC (24.5-34.5); Prothrombin Time 11.1 sec (9.3-11.8)
--- NOTE | 2024-05-24 12:56 | DVHSR ---
APPROVED REPORT EXAM: Two-dimensional and M-mode echocardiogram with Doppler and color Doppler. Blood Pressure: 98/68 mmHg INDICATION evaluate cardiac function RISK FACTORS Height: 6'0, Weight: 160 DIMENSIONS LVDd5.3 (3.8-5.7cm)LA (2D)4.0 (1.9-4.0cm)Aortic Root3.3 (2.0-3.7cm) LVDs4.0 (2.5-4.0cm)LA (MM) (1.9-4.0cm)Aortic Cusp Exc1.3 (1.5-2.0cm) EF (%) 55.0 (55-70%)Rt. Atrium4.2 (1.9-4.0cm)Asc. Aorta cm IVSd0.6 (0.7-1.1cm)RV (D) (1.8-2.4cm) PWd0.9 (0.7-1.1cm) Mitral Valve MitralMitral Stenosis E wave1.12m/sMV Mean GR.mmHg A wave0.73m/sMV Peak GR.105mmHg E/A ratio1.52D MVAcm2 DECEL [id number] 1/2 Timems Aortic Valve Aortic ValveAortic Stenosis V11.13m/Epifanio Mean GR.5mmHg V21.36m/Epifanio Peak GR.7mmHg LVOT Diameter1.7 (1.8-2.4cm)Doppler AVA1.88cm2 Pulmonic Valve V21.00m/s Tricuspid Valve TR Velocity2.44m/s [id number] Conclusion lvef 55% by visual estimate left atrium enlarged mild mitral regrug no valve vegetation noted
[2024-05-24] MEDS ORDERED: FAMO20TA10 PO (16:08)
[2024-05-24] MEDS ORDERED: AMOX875T4 PO (16:08)
--- NOTE | 2024-05-24 16:15 | DVHDSRES ---
Discharge Summary Date of Admission Resident Creating Document: BHARTI HARPER RESIDENT May 20, 2024 at 20:09 Date of Discharge: May 24, 2024 Admitting Diagnosis Septic shock Labs/Diagnostic Data: Laboratory Results Test 05/24/24 06:51 05/23/24 11:23 05/23/24 03:46 05/22/24 05:18 White Blood Count 6.2 10^3/uL (4.4-10.8) Red Blood Count 3.29 10^6/uL (4.5-5.90) Hemoglobin 11.9 g/dL (13.5-17.5) Hematocrit 35.7 % (41.0-53.0) Mean Corpuscular Volume 108.5 fL (80.0-100.0) Mean Corpuscular Hemoglobin 36.2 pg (28.0-32.0) Mean Corpuscular Hemoglobin Concent 33.3 g/dL (32.0-36.0) Red Cell Distribution Width 15.6 % (11.8-14.3) Platelet Count 53 10^3/uL (140-450) Mean Platelet Volume 8.6 fL (6.9-10.8) Neutrophils (%) (Auto) % (37.0-80.0) Lymphocytes (%) (Auto) % (10.0-50.0) Monocytes (%) (Auto) % (0.0-12.0) Basophils (%) (Auto) % (0.0-2.0) Neutrophils # (Auto) 10 ^3/uL (1.6-8.6) Lymphocytes # (Auto) 10 ^3/uL (0.4-5.4) Monocytes # (Auto) 10 ^3/uL (0-1.3) Differential Total Cells Counted 100.0 (100) Neutrophils % (Manual) 80 (37.0-80.0) Band Neutrophils % (Manual) 3 Lymphocytes % (Manual) 15 (10.0-50.0) Monocytes % (Manual) 2 (0-12) Eosinophils % (Manual) 0 (0-7) Basophils % (Manual) 0 (0.0-2.0) Metamyelocytes % (manual) 0 Myelocytes % (Manual) 0 Promyelocytes % (Manual) 0 Blast Cells % (Manual) 0 Reactive Lymphocytes 0 Platelet Estimate Decreased Prothrombin Time 11.1 sec (9.3-11.8) Prothrombin Time INR 1.05 (0.9-1.15) Activated Partial Thromboplast Time 27.2 SEC (24.5-34.5) Sodium Level 136 mmol/L (136-145) Potassium Level 3.7 mmol/L (3.5-5.1) Chloride Level 101 mmol/L (98-107) Carbon Dioxide Level 28 mmol/L (20-31) Anion Gap 7 (5-15) Blood Urea Nitrogen 17 mg/dL (9-23) Creatinine 0.80 mg/dL (0.700-1.30) Glomerular Filtration Rate Calc 111 mL/min (>90) BUN/Creatinine Ratio 21.3 (10.0-20.0) Serum Glucose 119 mg/dL (74-106) Calcium Level 9.1 mg/dL (8.7-10.4) Magnesium Level 1.8 mg/dL (1.6-2.6) Total Bilirubin 0.8 mg/dL (0.2-1.0) Aspartate Amino Transferase (AST) 58 U/L (13-40) Alanine Aminotransferase (ALT) 119 U/L (7-40) Alkaline Phosphatase 119 U/L (46-116) Total Protein 6.2 g/dL (5.7-8.2) Albumin 3.6 g/dL (3.2-4.8) HIV (1&2) Antibody Negative (Negative) POC Glucose 132 mg/dl (70-106) Eosinophils (%) (Auto) 0.2 % (0.0-7.0) Eosinophils # (Auto) 0 10 ^3/uL (0-0.8) Basophils # (Auto) 0 10 ^3/uL (0-0.2) Nucleated Red Blood Cells 0.1 % Vancomycin Level Trough 14.0 ug/mL (5-10) Macrocytosis Moderate Lactic Acid Level 1.8 mmol/L (0.4-2.0) Test 05/21/24 16:45 05/21/24 11:18 05/21/24 05:58 05/20/24 15:16 Urine Opiates Screen Pos (NEGATIVE) Urine Fentanyl Screen Neg (NEGATIVE) Urine Barbiturates Screen Neg (NEGATIVE) Urine Phencyclidine Screen Neg (NEGATIVE) Urine Amphetamines Screen Neg (NEGATIVE) Urine Benzodiazepines Screen Neg (NEGATIVE) Urine Cocaine Screen Neg (NEGATIVE) Urine Cannabinoids Screen Pos (NEGATIVE) Direct Bilirubin 1.1 mg/dL (<0.3) Plasma/Serum Blood Alcohol < 3.0 mg/dL (<10) Hemoglobin A1c 4.8 % A1C (<5.7) Triglycerides Level 231 mg/dL (< 150) Cholesterol Level 115 mg/dL (< 200) LDL Cholesterol 31 mg/dL (< 100) HDL Cholesterol 35 mg/dL (40-59) Lipase 20 U/L (12-53) Thyroid Stimulating Hormone (TSH) 2.78 uIU/mL (0.55-4.78) Random Vancomycin Level 7.5 ug/mL (5-10) Troponin I High Sensitivity 31 ng/L (</=54) Beta-Hydroxybutyric Acid 0.124 mmol/L (< 0.4) Test 05/20/24 14:57 05/20/24 12:45 05/20/24 12:44 05/20/24 11:42 Blood Gas Specimen Type Arterial Blood Gas Sample Site Left radial Blood Gas Patient Temperature 37.0 Arterial Blood Date Drawn [id number] Arterial Blood pH 7.336 (7.350-7.450) Arterial Blood Partial Pressure CO2 36.9 mmHg (35.0-48.0) Arterial Blood Partial Pressure O2 69.8 mmHg (83.0-108.0) Arterial Blood HCO3 19.3 mmol/L (21.0-28.0) Arterial Blood Oxygen Saturation 91.9 % (94.0-98.0) Arterial Blood Base Excess -5.9 mmol/L (-2.0-3.0) Arterial Blood Oxyhemoglobin 89.8 % (94.0-98.0) Arterial Blood Carboxyhemoglobin 2.0 % (0.5-1.5) Arterial Blood Methemoglobin 0.3 % (0.0-1.5) Edilberto Test Yes Blood Gas Total Hemoglobin 14.00 g/dL (13.5-17.5) Blood Gas Modality Room air FiO2 % 21.0 Influenza Type A Antigen Negative (Negative) Influenza Type B Antigen Negative (Negative) SARS-CoV-2 Antigen (Rapid) Negative (NEGATIVE) Urine Color Light-orange (Yellow) Urine Clarity Turbid (Clear) Urine pH 5.5 (5.0-9.0) Urine Specific [place] 1.012 (1.001-1.035) Urine Protein 1+ (Negative) Urine Ketones Trace (Negative) Urine Blood 3+ /uL (Negative) Urine Nitrite Negative (Negative) Urine Bilirubin 1+ (Negative) Urine Urobilinogen 4 mg/dL (Negative) Urine Leukocyte Esterase 2+ /uL (Negative) Urine RBC 1 /hpf (0 - 3) Urine Microscopic WBC 55 /HPF (0-3) Urine Squamous Epithelial Cells Few /hpf (<5) Urine Bacteria Few /hpf (None Seen) Urine Mucus Few (None Seen) Urine Yeast (Budding) Moderate /hpf (None Seen) Urine Glucose Normal mg/dL (Normal) Anisocytosis (manual) Slight B-Type Natriuretic Peptide 29.98 pg/mL (0-100) Other Laboratory Tests 05/24/24 06:51 Brief Hx & Hospital Course: HPI-Patient is 44 years old male with no significant past medical history was brought in by EMS due to shortness of breath. Patient reported he started having shortness of breath on Monday with a productive cough. Patient reports he could not catch his breath. Patient also reported having cough with greenish sputum. On further discussion patient reported having left-sided chest pain, central, 08/17, nonradiating, no aggravating or relieving factor. Patient also complained of feeling generalized weakness, palpitation. On further inquiry patient also reported having right upper abdominal pain started on Monday, 06/17, vague in nature, associated nausea and vomiting for 6 time, watery, yellowish greenish vomitus, no blood. Patient denied any fever, acute joint pain or swelling, diarrhea, dysarthria, change in vision. On arrival patient's BP was low with 5/53, pulse ranging from 130-140, blood sugar 350s. Patient's lab work up was significant for MCV 111.7, RDW 15.8, hyponatremia with the sodium 129, hypokalemia with potassium 2.7, increased anion gap 20, elevated serum creatinine 2.26, lactic acidosis with lactic acid 10.5, transaminitis with total bilirubin 2.3, AST 255, ALT 186, hypomagnesemia 1.2, TSH 2.78, BNP 11.4, troponin I 29> 32> 31, lipase 20.. urinalysis revealed-leukocyte esterase 2+, RBC 1+, WBC 55, bacteria few, yeast moderate. ABG revealed pH 7.336, partial pressure of carbon dioxide 36.9, partial pressure of oxygen 69.8, bicarbonate 19.3. Patient tested negative for COVID-19 and influenza type A and B. CXR revealed-Left basilar subsegmental atelectasis. X-ray abdomen revealed- Nonobstructive bowel gas pattern. Ultrasound revealed- Hepatic steatosis/hepatomegaly. Cholelithiasis. Cholecystitis not excluded. Small right pleural effusion. Bilateral lower extremity Doppler was negative for DVT.Blood culture and urine culture revealed E coli. Hospital course-came to the hospital due to chest pain and shortness of breaths and nausea and vomiting and abdominal pain. Patient was found to have septic shock. On arrival patient's BP was low with 5/53, pulse ranging from 130-140, blood sugar 350s. Patient's lab work up was significant for MCV 111.7, RDW 15.8, hyponatremia with the sodium 129, hypokalemia with potassium 2.7, increased anion gap 20, elevated serum creatinine 2.26, lactic acidosis with lactic acid 10.5, transaminitis with total bilirubin 2.3, AST 255, ALT 186, hypomagnesemia 1.2, TSH 2.78, BNP 11.4, troponin I 29> 32> 31, lipase 20.. urinalysis revealed-leukocyte esterase 2+, RBC 1+, WBC 55, bacteria few, yeast moderate. ABG revealed pH 7.336, partial pressure of carbon dioxide 36.9, partial pressure of oxygen 69.8, bicarbonate 19.3. Patient tested negative for COVID-19 and influenza type A and B. CXR revealed-Left basilar subsegmental atelectasis. X-ray abdomen revealed-Nonobstructive bowel gas pattern. Ultrasound revealed- Hepatic steatosis/hepatomegaly. Cholelithiasis. Cholecystitis not excluded. Small right pleural effusion. Bilateral lower extremity Doppler was negative for DVT. Blood culture and urine culture revealed E coli. Patient was initially treated with cefepime and vancomycin. Later on antibiotic was changed to ceftriaxone. Repeat blood culture was negative for any growth. Patient was discharged with Augmentin 875 mg by mouth 2 times a day for 14 days. Patient was advised to follow up with the primary care physician in 1 week and repeat lab CBC, CMP, magnesium. Patient was counseled about the effect of substance abuse on health. Diagnosis- # Urosepsis with end-organ damage due to E coli # acute complicated cystitis with end organ damage due to E coli # acute bacteremia with E coli # Metabolic encephalopathy # Metabolic acidosis likely lactic acidosis/due to alcoholism # Shock liver # leukocytosis and thrombocytopenia likely due to sepsis # Hyponatremia # Hypokalemia # Hypomagnesemia # KIMBERLY likely due to septic shock # Alcohol dependence # Suspected pulmonary embolism # Substance abuse # Smoking # Macrocytosis likely due to alcoholism Discharge Plan Continue Augmentin 875 mg by mouth 2 times a day for 2 weeks Continue famotidine 20 mg by mouth 2 times a day for 30 days Please follow up with the primary care physician in 1 week -please repeat CBC, CMP, magnesium on your upcoming follow up also follow up with acute hepatitis panel report with PCP -patient was counseled about substance abuse and smoking and alcoholism Avoid dehydration Condition at Discharge: Stable Final Diagnosis/Problems List # Urosepsis with end-organ damage due to E coli # acute complicated cystitis with end organ damage due to E coli # acute bacteremia with E coli # Septic shock likely due urosepsis # Metabolic encephalopathy # leukocytosis and thrombocytopenia likely due to sepsis # Metabolic acidosis likely lactic acidosis/due to alcoholism # Shock liver # Hyponatremia # Hypokalemia # Hypomagnesemia # KIMBERLY likely due to septic shock -resolved # Alcohol dependence # Suspected pulmonary embolism # Substance abuse # Smoking # Macrocytosis likely due to alcoholism Discharge Disposition: Home Discharge Instruct/Medications Diet: Regular Activity: No Restrictions, As Tolerated Follow Up/Referral: Please follow up with the primary care physician in 1 week Please follow up with the primary care physician in 1 week -please repeat CBC, CMP, magnesium on your upcoming follow up also follow up with acute hepatitis panel report with PCP -patient was counseled about substance abuse and smoking and alcoholism Avoid dehydration Medications: Augmentin 875 mg by mouth 2 times a day for 2 weeks Famotidine 20 mg by mouth 2 times a day for 1 month Discharge Statement: "Patient was advised to return to the ER or call 911 if any headaches, dizziness, shortness of breath, chest pain, abdominal pain, bleeding, fevers, or worsening of medical condition. Patient was counseled about treatment plan, medications, possible side effects, patientverbalized understanding. All questions were answered to the best of my ability. This discharge took greater then 30 minutes in planning, reviewing documentation, counseling the patient, and discussing with other team members." ASSESSMENT ASSESSMENT Assessment # Urosepsis with end-organ damage due to E coli # acute complicated cystitis with end organ damage due to E coli # acute bacteremia with E coli # Septic shock likely due urosepsis # Metabolic encephalopathy # Metabolic acidosis likely lactic acidosis/due to alcoholism # Shock liver # Hyponatremia # Hypokalemia # Hypomagnesemia # KIMBERLY likely due to septic shock # Alcohol dependence # Suspected pulmonary embolism # Substance abuse # Smoking # Macrocytosis likely due to alcoholism Date of Service: May 24, 2024 Billing Provider: JEROME VARGAS MD Common Visit Codes: 80922-RYS/OBS DISCH DAY >30min BHARTI HARPER May 24, 2024 16:15 JEROME VARGAS MD May 27, 2024 00:33
[2024-05-27 08:45] LABS: Hepatitis B Surface Antigen Negative (Negative)
[2024-05-27 09:06] LABS: Hepatitis A Ab IgM Negative; Hepatitis B Core IgM Negative (Negative)
[2024-05-28 10:00] LABS: Hepatitis C Antibody Negative (Negative)
== END 2024-05-24 18:20 | disposition home or self-care (01) | DRG 720 ==
LOC: EDBD 11:10 → ER 11:10 → OVERFLOW 20:09 → TELE-CENTR 05-22 16:52
PROVIDERS: ADMIT Student in an Organized Health Care Education/Training Program; ATTEND Student in an Organized Health Care Education/Training Program
DX: A41.9 Sepsis, unspecified organism (principal); J96.01 Acute respiratory failure with hypoxia; I26.99 Other pulmonary embolism without acute cor pulmonale; K72.00 Acute and subacute hepatic failure without coma; R65.21 Severe sepsis with septic shock; D69.6 Thrombocytopenia, unspecified; E87.1 Hypo-osmolality and hyponatremia; N39.0 Urinary tract infection, site not specified; Z20.822 Contact with and (suspected) exposure to COVID-19; G93.41 Metabolic encephalopathy; E87.20 Acidosis, unspecified; N17.9 Acute kidney failure, unspecified; E11.9 Type 2 diabetes mellitus without complications; E83.42 Hypomagnesemia; F10.20 Alcohol dependence, uncomplicated; Y90.9 Presence of alcohol in blood, level not specified; B96.20 Unspecified Escherichia coli [E. coli] as the cause of diseases classified elsewhere; F17.210 Nicotine dependence, cigarettes, uncomplicated; R74.01 Elevation of levels of liver transaminase levels; F19.10 Other psychoactive substance abuse, uncomplicated
CPT/HCPCS: 36415; 36600; 71045; 74021; 76705; 78226; 80048; 80053; 80061; 80074; 80076; 80202; 80307; 80320; 81001; 82010; 82565; 82805; 82962; 83036; 83605; 83690; 83735; 83880; 84443; 84484; 85007; 85025; 85027; 85610; 85730; 86703; 87040; 87081; 87086; 87088; 87186; 87426; 87804; 93005; 93306; 93970; 94640; 99291; G0378; J1100; J2543; J3490

== ENCOUNTER 2024-12-04 01:21 | Emergency (ER) | payer MEDICAID, OTHER ==
[~2024-12-04] VITALS: Ht 185.4 cm; Wt 72.7 kg
[~2024-12-04 01:21] MED LIST: AMOX875T4 PO
[2024-12-04 02:31] VITALS: BP 144/90; PULSE 62; RESP 16; TEMP 97.8; O2SAT 97
--- NOTE | 2024-12-04 02:32 | ED.PDOC ---
GI ASSESSMENT HPI Comments 44 YEAR OLD MALE PRESENTS TO ER WITH COMPLAINTS OF N/V X 1 DAY. PATIENT PRESENTS TO ER VIA EMS STATING HE STARTED EXPERIENCING N/V AT 10:50 P.M. PRIOR TO ARRIVAL TO ER THAT STARTED "SHORTLY" AFTER HE HAD EATEN "POPEYES". DENIES ANY PAIN AND STATES HE HAS VOMITED 4 TIMES SINCE ONSET OF SYMPTOMS. PATIENT WAS GIVEN IV FLUIDS AND ZOFRAN BY EMS WITH SIGNIFICANT RELIEF, DENYING ANY CURRENT N/V. DENIES FEVER, BODY ACHES, CHILLS, HEMATEMESIS, CHEST PAIN, ABDOMINAL PAIN, HEADACHE, DIZZINESS OR ANY FURTHER SYMPTOMS/COMPLAINTS Chief Complaint: Nausea/Vomiting Time Seen by MD: 01:40 Primary Care Provider: UNKNOWN Reviewed Notes: Nurses Notes, Medications, Allergies Allergies: Coded Allergies: NO KNOWN ALLERGIES (Unverified , 05/20/24) Home Meds Active Scripts Amoxicillin & Pot Clavulanate (Amoxicillin/Potassium Cla) 875 Mg Tab, 1 TAB PO BID for 14 Days, #28 TAB Prov:BHARIT HARPER RESIDENT 05/24/24 Information Source: Patient Mode of Arrival: EMS Past Medical History PAST MEDICAL HISTORY: Denies Surgical History: Hernia Repair Family History Family History: Unknown Social History Smoker: Cigarettes, Less Than 1 Pack/Day Alcohol: Denies ETOH Use Drugs: Marijuana Lives In: Home Constitutional: denies: chills, diaphoresis, fatigue, fever, malaise, sweats, weakness, others EENTM: denies: blurred vision, double vision, ear bleeding, ear discharge, ear drainage, ear pain, ear ringing, eye pain, eye redness, hearing loss, mouth pain, mouth swelling, nasal discharge, nose bleeding, nose congestion, nose pain, photophobia, tearing, throat pain, throat swelling, voice changes, others Respiratory: denies: cough, hemoptysis, orthopnea, SOB at rest, shortness of breath, SOB with excertion, stridor, wheezing, others Cardiovascular: denies: chest pain, dizzy spells, diaphoresis, Dyspnea on exertion, edema, irregular heart beat, left arm pain, lightheadedness, palpitations, PND, syncope, others Gastrointestinal: reports: others ( STATED IN HPI) Genitourinary: denies: burning, dysuria, flank pain, frequency, hematuria, incontinence, penile discharge, penile sore, pain, testicle pain, testicle swelling, urgency, others Neurological: denies: dizziness, fainting, headache, left sided numbness, left sided weakness, numbness, paresthesia, pre-existing deficit, right sided numbness, right sided weakness, seizure, speech problems, tingling, tremors, weakness, others Musculoskeletal: denies: back pain, gout, joint pain, joint swelling, muscle pain, muscle stiffness, neck pain, others Integumetry: denies: bruises, change in color, change in hair/nails, dryness, laceration, lesions, lumps, rash, wounds, others Allergic/Immunocompromised: denies: Difficulty Healing, Frequent Infections, Hives, Itching, others Hematologic/Lymphatic: denies: anemia, blood clots, easy bleeding, easy bruising, swollen glands, others Endocrine: denies: excessive hunger, excessive sweating, excessive thirst, excessive urination, flushing, intolerance to cold, intolerance to heat, unexp lained weight gain, unexplained weight loss, others Psychiatric: denies: anxiety, bipolar disorder, depression, hopeless, panic disorder, schizophrenia, sleepless, suicidal, others Physical Exam General Appearance: No Apparent Distress, Normal HEENT: Normal ENT Inspection, PERRL/EOMI, Pharynx Normal, TMs Normal Neck: Full Range of Motion, Non-Tender, Normal Respiratory: Chest Non-Tender, Lungs Clear, No Accessory Muscle Use, No Respiratory Distress, Normal Breath Sounds Cardiovascular: No Murmur, No Gallop, Regular Rate/Rhythm Breast Exam: Deferred Gastrointestinal: No Organomegaly, Non Tender, No Pulsatile Mass, Normal Bowel Sounds, Soft Genitalia: Deferred Pelvic: Deferred Rectal: Deferred Extremities: Normal capillary refill, Normal range of motion Neurologic: Alert, No Motor Deficits, Normal Affect, Normal Mood, No Sensory Deficits Cerebellar Function: Normal Reflexes: Normal Skin: Dry, Normal Color, Warm Peripheral Pulses: 2+ Radial (R), 2+ Radial (L), 2+ Brachial (R), 2+ Brachial (L) Lymphatic: No Adenopathy Was a procedure done? Was a procedure done?: No Sedation Sedation?: No GI differential Dx Differential Diagnosis: Appendicitis, GI hemorrhage, Ischemic Bowel, Trauma intraabdominal X-Ray, Labs, Meds, VS Vital Signs Date Time Temp Pulse Resp B/P (MAP) Pulse Ox O2 Delivery O2 Flow Rate FiO2 12/04/24 02:31 62 16 97 Room Air 12/04/24 02:31 97.8 62 16 144/90 (108) 97 97.8 12/04/24 01:36 97.8 62 16 144/90 97 97.8 PATIENT TOLERATING P.O. INTAKE WELL AND ASYMPTOMATIC PRIOR TO DISCHARGE SMOKING/CANNABIS CESSATION DISCUSSED AND ADVISED DIET EDUCATION DISCUSSED ADVISED TO FOLLOW UP WITH PCP IN 1-2 DAYS PATIENT VERBALIZED UNDERSTANDING AND AGREEABLE WITH CURRENT NECK F ADVISED TO RETURN TO ER IMMEDIATELY IF SYMPTOMS WORSEN Time of 1ST Reevaluation: 02:14 Reevaluation 1ST: N/A Patient Education/Counseling: Diagnosis, Treatment, Prognosis, Need For Follow Up Family Education/Counseling: No Family Present SEPSIS Sepsis Screen Date sepsis recognized/suspect: Dec 04, 2024 Time Sepsis recognized/suspect: 0138 Recent Procedure: No On Antibiotic Therapy: No Respiratory Rate >20: No Heart Rate >90: No Temp<36 C (96.8 F) or >38.3 C: No SBP <90 or MAP <65 mmHG: No New Acute Mental Status Change: No Is the patient on CPAP, BIPAP,: No Vital Signs Date Time Temp Pulse Resp B/P (MAP) Pulse Ox O2 Delivery O2 Flow Rate FiO2 12/04/24 02:31 62 16 97 Room Air 12/04/24 02:31 97.8 62 16 144/90 (108) 97 97.8 12/04/24 01:36 97.8 62 16 144/90 97 97.8 Departure 1 Departure Time of Disposition: 02:30 Impression: Primary Impression: Gastroenteritis Disposition: 01 HOME / SELF CARE / HOMELESS Condition: Stable Discharged With: Friend Critical Care Note Critical Care Time?: No Stability Stability form required: No Heart Score Heart Score: Heart Score Response (Comments) Value History N/A 0 EKG N/A 0 Age N/A 0 Risk Factors N/A 0 Troponin N/A 0 Total 0 KIMBERLY FIGUEROA Dec 04, 2024 02:32
== END 2024-12-04 02:41 | disposition home or self-care (01) ==
LOC: EDBD 01:21 → ER 01:26
DX: K52.9 Noninfective gastroenteritis and colitis, unspecified (principal); F17.210 Nicotine dependence, cigarettes, uncomplicated; Z98.890 Other specified postprocedural states